=== PATIENT | female | born 1935 | race Two or more races ===

== ENCOUNTER 2018-12-23 18:32 | Inpatient (IN) | payer MEDICARE, OTHER ==
[~2018-12-23] VITALS: Ht 157.5 cm; Wt 75.0 kg
--- NOTE | 2018-12-23 19:00 | NUR ---
Admission Note with Justification for Admission to [facility] Patient admitted to [facility] for protective oversight for emergency stabilization of acute psychiatric crisis. Pt admitted from: [facility] Mode of arrival: EMS Accompanied By: EMS Precipitating behaviors that initiated intake and admission: Cut wrist 1 week ago, SI Description of failure of out patient attempts at stabilization in previous setting list behavior and medication trials: Sent to ER Behaviors and assessment findings upon admission: Calm, cooperative, coherent, VSS Plan: Admit for protective oversight for adjustment and stabilization of medications, behaviors and mood. Intense treatment regimen including groups, medication adjustments, therapy, consistent regimen for ADL's, self care, and sleep hygiene. Daily monitoring by Inpatient staff, Psychiatry, and Medical Physician.
[2018-12-23] MEDS ORDERED: DEXTROSE 50% 25 GM / 50ML DISP.SYRIN. IV PRN (20:30)
[2018-12-23 21:47] VITALS: BP 194/78
[2018-12-23 22:00] VITALS: BP_SYST 194
[2018-12-23] MEDS: METOPROLOL TART IMMED RELEASE 25 MG TABLET PO SCH (22:00)
[2018-12-23] MEDS ORDERED: MAG HYDROX/AL HYDROX/SIMETH 30 ML ORAL.SUSP PO PRN (23:00)
[2018-12-24] MEDS ORDERED: ONDANSETRON ODT 4 MG TAB.RAPDIS PO PRN (05:00)
--- NOTE | 2018-12-24 05:15 | NUR ---
Emesis: approx 200cc undigested food, PRN zofran given.
[2018-12-24 07:05] VITALS: BP 103/55
[2018-12-24] MEDS: ASPIRIN ENTERIC COATED 81 MG TABLET.DR. PO SCH (07:49)
[2018-12-24] MEDS: INSULIN LISPRO 300 UNITS/3 ML INSULN.PEN. SQ SCH ×3 (07:50→16:56)
[2018-12-24] MEDS: METOPROLOL TART IMMED RELEASE 25 MG TABLET PO SCH ×2 (07:50→20:43)
--- NOTE | 2018-12-24 09:27 | NUR ---
Location of Patient during Assessment:dining room Behaviors Mood and Affect this shift: calm compliant Medication Compliant: yes Assessment Compliant: yes Response After Interventions: up adl in garza with walker
[2018-12-24 12:08] LABS: THYROXINE 8.7 ug/dL (4.5-12.0)
--- NOTE | 2018-12-24 12:12 | NUR ---
During lunch FSBS pt become agitated, aggressive and resistive with staff. She was hitting and yelling at staff yelling "I don't need my blood sugar checked!" "No! Get away!" Staff X 4 convinced pt to comply with FSBS as staff educated her that she has to be safe and healthy while here and the DrAnderson will be here to see her this afternoon and he may discontinue them this after the doctor sees her. paged with new order for zyprexa zydis 2.5mg q 4 hours prn
--- NOTE | 2018-12-24 12:23 | EKG ---
[address] [address] Test Date: 2018-12-24 Test Time: 10:59:48 Pat Name: ISA ALVARADO Department: Room: [address] [place] [address] Gender: F Cyber Security Manager: : 1935 Requested By: BEATRICE CALLES Order Number: [id number] Reading MD: Giovanni Lawson MD Measurements Intervals [place] Rate: 76 P: 71 ID: [id number] QRS: 52 QRSD: 86 T: 98 QT: 388 QTc: 441 Interpretive Statements SINUS RHYTHM Electronically Signed On 01-18-2019 15:01:27 CDT by Giovanni Lawson MD
[2018-12-24 16:19] VITALS: BP 137/51
--- NOTE | 2018-12-24 16:59 | NUR ---
pt very paranoid and resistive to dr santiago assessing her. pt asked staff to leave room. pt resistive to redirection in afternoon. attempted to drop self to floor. zydis given per syringe. family here at 1600. pt has refused to eat anything but pt had grandson bring her a hamburger and fries.
[2018-12-24] MEDS: OLANZapine 7.5 MG TABLET PO SCH (20:44)
--- NOTE | 2018-12-24 23:30 | NUR ---
Nursing Note Pt argumentative and resistive to assessment. Takes po meds hidden in a boost. Tries to rally her peers into trying to leave. Also is hallucinating sees a dog and cat in the station.
--- NOTE | 2018-12-25 00:19 | CONS ---
DATE OF CONSULTATION: 12/24/2018 REASON FOR CONSULTATION: Consult for medical management. HISTORY OF PRESENT ILLNESS: The patient is an 83-year-old female patient was brought to the Emergency Room because of complaint of abdominal pain and suicidal ideation. She has been complaining of chronic upper abdominal pain for years that getting worse for the last 2 days. It is a constant, sharp pain with radiation to her back without nausea and vomiting, diarrhea or constipation, any symptoms of fever or chills. She stated that her pain is 10/10 in severity. Her pain is so bad that she wants to kill herself and tried to cut her wrist last week with plans to cut her wrist again. The patient has lost her son 2 years ago with suicide attempt and was very depressed since then and talking about suicide according to her neighbor's frequently. She denied any homicidal ideation or hallucination. She is very anxious during starting the IV line and she was extensively evaluated in the Emergency Room of [facility] as there was no evidence of any acute abnormality in her CT scan abdomen and pelvis without contrast. Basically, the patient was transferred [facility] for inpatient psychiatric stabilization. PAST MEDICAL HISTORY: Her pat medical history is significant for breast cancer, status post left mastectomy in 1991 in addition to axillary lymph node dissection. She has no history of chemotherapy or radiation. She was given 5 years of tamoxifen. Other medical problems include coronary artery disease, hypertension, hyperlipidemia, pleural effusion, anemia, generalized osteoarthritis as well as type 2 diabetes. PAST SURGICAL HISTORY: Past surgical history is significant for coronary artery bypass graft surgery x 3, left side mastectomy with lymph node dissection. She has total knee replacement bilaterally, tonsillectomy, hysterectomy and carpal tunnel repair. FAMILY HISTORY: Noncontributory. SOCIAL HISTORY: She lives in an independent living. She does not smoke, drink alcohol or use recreational drugs. She apparently seemed to be estranged from her family. ALLERGIES: She is ALLERGIC TO SULFA DRUGS. MEDICATIONS: When she was admitted to [facility] in 2015, she was on following medications. She was on nitroglycerin 0.4 mg sublingually every 5 minutes x 3, metoprolol tartrate 25 mg twice a day, aspirin 81 mg once a day, fluoxetine 20 mg daily, alprazolam 0.5 mg 3 times a day, temazepam 30 mg at bedtime, furosemide 20 mg once a day. She was actually on Levemir insulin 15 units at bedtime, biotin 5000 mcg p.o. daily and cholecalciferol for vitamin D3 2000 units daily. PHYSICAL EXAMINATION: GENERAL: When She was seen in the Emergency Room, she was obviously very restless, agitated, somewhat pale, but no jaundice or cyanosis. No lymphadenopathy, no thyromegaly. No jugular venous distension. No lower limb edema. VITAL SIGNS: Her heart rate was 63, blood pressure was 150/63, temperature was 97.4, respiratory rate 22 and oxygen saturation was 96% on room air. NEUROLOGIC: The patient was extremely paranoid and did not allowing me to even ask question and stating that I belong to them and despite multiple attempts to reassure her that I am a physician and I am not related to anybody of her family, she adamantly refused to allow me to question her and asked me to leave the room; however, from looking at her from a distance, she apparently seemed to be stable and all her cranial nerves from a distance seemed to be normal. EXTREMITIES: She moves her extremities without difficulty. She ambulates with a walker without difficulty. LABORATORY DATA: She has had extensive lab work done at the [facility] Emergency Room, which showed her white cell count 5700, hemoglobin 11.7, hematocrit 35, MCV 93 and platelet count of 191,000. Her serum sodium was 136, potassium 4.5, chloride 100, bicarbonate 23, anion gap of 13, BUN 36, creatinine 1.5, estimated GFR was 33 mL per minute. Her glucose was 197, calcium was 8.7. Her total bilirubin, AST, ALT, alkaline phosphatase were normal. Her white cell count was 6000. Her total protein was 6.5 and albumin was 3.2. Her lipase was 247 and her troponin was less than 0.032. Her prothrombin time was 13, INR of 1. Urinalysis was essentially unremarkable and her toxic screen was positive for opiates, negative for methadone, barbiturate, phencyclidine, amphetamine, methamphetamine, benzodiazepine, cocaine, cannabinoids and ethyl alcohol. IMPRESSION AND RECOMMENDATION: So, the patient was basically admitted because of suicidal ideation and depression and the patient, however, is extremely paranoid and very suspicious. When I came to talk to her, she thought that I belong to them and part of her family from which she is estranged. She refused to acknowledge that I am a physician; however, medically she seemed to have multiple medical problems. She has chronic kidney disease, type 2 diabetes mellitus. She has history of coronary artery disease, hypertension, osteoarthritis and type 2 diabetes. She has also normochromic normocytic anemia. Unfortunately, we do not have the actual list of her medication and she states that she has no family members that really know what she is taking. She does not know which pharmacy she gets her medication from and I think she needs basically first stabilize her psychologically before we look into her other medical problems. THUAN XIAO MD DR: ELODIA/nelda JOB#: [id number] / [id number]
--- NOTE | 2018-12-25 02:09 | PSYEV ---
DATE OF SERVICE: 12/24/2018 PSYCHIATRIC EVALUATION SUBJECTIVE: The patient was seen today for psychiatric evaluation. REASON FOR ADMISSION: This 83-year-old single female was sent here from [facility] Emergency Room. Apparently, the EMS brought her to the [facility] because she was having severe abdominal pain. CHIEF COMPLAINT: "I am here. I have been living here for 4 years." HISTORY OF PRESENT ILLNESS: The patient apparently was taken to [facility] from [place] where she was living in an apartment complex. Apparently, people around her noticed some changes. Apparently, she was screaming, crying, wandering and apparently they called the EMS to bring her here. The patient in the ER told her that that she tried to cut her wrists recently and was also making suicidal statements, very paranoid and suspicious and also confused. The patient told the staff that she is depressed because her son committed suicide 2 years ago. The patient unable to give any more information. Apparently, one of her grandsons came and visited her, but staff was not able to get much information out of him. The patient unable to interact with the staff. Tried to ask her questions about why she is here and what happened. The patient became very angry, paranoid, and she thought that this is [facility] and she did not believe that she is in the hospital. The patient walks with a walker. She was constantly pacing, agitated easily. The patient had some lab work done at [facility], it was positive for opioids. Apparently, the patient told them that she is on Xanax getting the prescription by mail order, but it was negative, did not show up in the urine. The patient denies of any prior treatment and the patient's information was unreliable at this time. PAST PSYCHIATRIC HISTORY: None available, but the patient has been on Xanax in the past. The patient is not able to give any information whether she had a past history of alcohol or substance abuse. PAST MEDICAL HISTORY: The patient apparently presented to the ER because of abdominal pain. The patient has a history of carpal tunnel surgery. The patient also has history of knee surgery, history of cardiac bypass surgery and also gastric bypass surgery, diabetes mellitus type 2, history of pleural effusion. CURRENT MEDICATIONS: Unavailable except mentioned above. She was taking Xanax, but the urine drug screen was negative. PSYCHOSOCIAL HISTORY: The patient told the staff that she has at least 10 children, but it is not clear. We will try to get more information from the family members. The patient guardian. The patient is not wanting to share the information at this time as she is very paranoid and suspicious. FAMILY HISTORY: None available. MENTAL STATUS EXAMINATION: The patient appeared to be of her stated age. The patient apparently had multiple scratches on her arms secondary to scratching or picking the skin. The patient is able to walk but slow. Denies of any falls. The patient denies of any physical problems at this time. Her speech is clear, monotone, and decreased rate and rhythm. Affect and mood showed her mood fluctuates significantly. She was pleasant one moment and the next moment she became very paranoid, not wanting to share any information and even she does not believe that this is hospital and she is talking to the medical staff. The patient is currently delusional, paranoid, suspicious. The patient is also having difficulty with concentration and thinking. The patient also having problems with short-term memory. She is confused at this time. Her memory is not testable at this time. Her judgment is impaired. Insight limited. ADMITTING DIAGNOSES: AXIS I: 1. Brief reactive psychosis. 2. Rule out major depression, single episode, with psychotic features. 3. Delusional disorder, paranoid. AXIS II: None. AXIS III: Status post knee surgery, status post gastric bypass, status post cardiac bypass surgery, diabetes mellitus type 2, history of pleural effusion. INITIAL TREATMENT PLAN: The patient currently refusing to provide information to the doctors and the staffs, not wanting any treatment and also she is confused. She thinks she is still living in an apartment. The patient currently on Zyprexa 2.5 mg q.4 hours p.r.n. and also she will be started on Zyprexa 7.5 mg at night tonight to see the response. implementation services analyst will contact the family and try to obtain more information and also try to guardian or a DPO for her. LENGTH OF STAY: 5-10 days. DEVORAH MERINO MD DR: ARIANA/nelda JOB#: [id number] / [id number]
[2018-12-25 05:53] VITALS: BP 132/52
[2018-12-25] MEDS: INSULIN LISPRO 300 UNITS/3 ML INSULN.PEN. SQ SCH ×3 (08:00→17:40)
[2018-12-25] MEDS: ASPIRIN ENTERIC COATED 81 MG TABLET.DR. PO SCH (08:11)
[2018-12-25] MEDS: METOPROLOL TART IMMED RELEASE 25 MG TABLET PO SCH ×2 (08:11→19:43)
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
[2018-12-25 16:31] VITALS: BP 119/56
--- NOTE | 2018-12-25 18:05 | NUR ---
Patient walking around most of the day with her roommate. Resistive with lunch insulin, accepting of insulin at dinner. Oriented to self, states that she lives here. Nurse was able to get urine sample, taken to lab.
[2018-12-25 18:32] LABS: BACTERIA,URINE MOD /HPF (0-FEW); BILIRUBIN,URINE NEG (NEG); CLARITY,URINE CLOUDY; COLOR,URINE YELLOW; GLUCOSE,URINE NEG (NEG); NITRITE,URINE POS (NEG); RBC,URINE 0 /HPF (0-2); SQUAMOUS EPITHELIAL CELL,UR MOD /LPF; UROBILINOGEN,URINE 0.2 mg/dL (0.2 mg/dL)
[2018-12-25] MEDS: OLANZapine 7.5 MG TABLET PO SCH (19:43)
--- NOTE | 2018-12-26 01:20 | NUR ---
Pt located in her bed this evening. Withdrawn to room. Pt pleasant when approached with medications. Compliant with whole medications. No behaviors noted.
[2018-12-26 05:35] VITALS: BP 126/66
[2018-12-26 07:42] LABS: BASO % 0 % (0-3); EOS # 0.2 x10^3/uL (0.0-0.7); EOS % 3 % (0-3); HEMATOCRIT 35.7 % (36.0-47.0); LYMPH # 2.2 x10^3/uL (1.0-4.8); LYMPH % 30 % (24-48); MEAN CORPUSCULAR HEMOGLOBIN 31 pg (25-35); MEAN CORPUSCULAR HGB CONC 34 g/dL (31-37); MEAN CORPUSCULAR VOLUME 93 fL (79-100); MONO # 0.7 x10^3/uL (0.0-1.1); MONO % 9 % (0-9); NEUT # 4.3 x10^3uL (1.8-7.7); NEUT % 59 % (31-73); PLATELET COUNT 195 x10^3/uL (140-400); RED BLOOD COUNT 3.84 x10^6/uL (3.50-5.40); RED CELL DISTRIBUTION WIDTH 13.4 % (11.5-14.5); WHITE BLOOD COUNT 7.4 x10^3/uL (4.0-11.0)
[2018-12-26] MEDS: ASPIRIN ENTERIC COATED 81 MG TABLET.DR. PO SCH (07:48)
[2018-12-26] MEDS: METOPROLOL TART IMMED RELEASE 25 MG TABLET PO SCH ×2 (07:48→19:41)
[2018-12-26] MEDS: INSULIN LISPRO 300 UNITS/3 ML INSULN.PEN. SQ SCH ×3 (07:52→17:35)
[2018-12-26 07:53] LABS: ALBUMIN 3.3 g/dL (3.4-5.0); ALBUMIN/GLOBULIN RATIO 0.8 (1.0-1.7); CALCIUM 9.4 mg/dL (8.5-10.1); CREATININE 1.3 mg/dL (0.6-1.0); GFR 39.2; POTASSIUM 4.5 mmol/L (3.5-5.1); TOTAL BILIRUBIN 0.5 mg/dL (0.2-1.0); TOTAL PROTEIN 7.2 g/dL (6.4-8.2)
--- NOTE | 2018-12-26 13:21 | PN ---
DATE: 12/25/2018 SUBJECTIVE: The patient was seen today, met with the staff, chart reviewed. The patient continues to avoid talking to the staff sometimes including the doctors. The patient gets very angry, paranoid, but she gets along with another female resident. Staff observed fluctuating mood swings, irritability, angry outbursts followed with being very pleasant and smiling. The patient is not expressing any suicidal thoughts. The patient is not exhibiting any overt psychotic symptoms, but the patient seems to be confused at times, having cognitive deficits. She is cofused to the point that she identified the unit as her home where she is staying for 4 weeks. OBSERVATION: Vital signs: Temperature 97.3, blood pressure 132/52, pulse 71, respirations 20, and O2 sat 100%. Slept about 5 hours last night. The patient's appetite is fair. The patient is able to walk with a walker. MEDICATIONS: The patient's current medications include Zyprexa 7.5 mg at night and Zyprexa 2.5 mg q.4 hours p.r.n. So far, she is not having any side effects. LENGTH OF STAY: 7 to 10 days. DEVORAH MERINO MD DR: ARIANA/nelda JOB#: [id number] / [id number] MATTI
--- NOTE | 2018-12-26 15:28 | NUR ---
Patient has been pleasant and cooperative today. Took all medication without complaint or concern. Currently in bed napping. Will continue to monitor.
[2018-12-26 16:31] VITALS: BP 123/63
[2018-12-26] MEDS: OLANZapine 7.5 MG TABLET PO SCH (19:41)
--- NOTE | 2018-12-26 21:40 | NUR ---
Nursing note: Assumed care of pt in her room. She was sitting with her roommate just visiting. Pt was pleasant and compliant. She had an incontinent episode earlier and stated she couldn't wait any longer for her roommate to get out of the bathroom. She has no c/o pain.
[2018-12-27 06:18] VITALS: BP 149/71
--- NOTE | 2018-12-27 06:33 | PN ---
DATE: 12/26/2018 SUBJECTIVE: The patient was seen today, met with the staff, chart reviewed. Staff reports some improvement. She is less irritable and caba. Still confused and has not presented with any major behavior problems. OBSERVATION: VITAL SIGNS: Temperature 97.4, blood pressure 126/66, pulse 59, respirations 18, O2 sat 96%. Slept about 8 hours last night. Her appetite has improved. The patient is still paranoid and suspicious. The patient is very defensive, reacts to any statements. The patient is struggling to hold on for reality. She also has significant problems with cognition. The patient has not expressed any overt psychotic symptoms today. MEDICATIONS: The patient's current medications include Zyprexa 7.5 mg at night and 2.5 mg q. 4 hours p.r.n. The patient denies of any physical complaints. ASSESSMENT: AXIS I: 1. Brief reactive psychosis; rule out major depression, single episode with psychotic features. 2. Delusional disorder, paranoid. PLAN: To continue with the treatment. LENGTH OF STAY: 7 days. DEVORAH MERINO MD DR: ARIANA/nelda JOB#: [id number] / [id number]
[2018-12-27] MEDS: INSULIN LISPRO 300 UNITS/3 ML INSULN.PEN. SQ SCH ×3 (08:00→17:00)
[2018-12-27] MEDS: ASPIRIN ENTERIC COATED 81 MG TABLET.DR. PO SCH (08:31)
[2018-12-27] MEDS: METOPROLOL TART IMMED RELEASE 25 MG TABLET PO SCH ×2 (08:32→19:21)
--- NOTE | 2018-12-27 09:00 | NUR ---
Nursing Note: Assumed care of pt approx 0700. Pt in dining room at time of morning medications pass. Compliant w/ meds taken whole, denied pain, interactive w/ peers and staff.
--- NOTE | 2018-12-27 11:56 | NUR ---
Attempted to meet and complete Activity Therapy Assessment; however, Pt. was visiting with family. Addendum: 12/27/18 at 1157 by GILBERTO HERNANDEZ ACT This attempt was made on 12/26/2018 at 0064
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
--- NOTE | 2018-12-27 16:20 | NUR ---
WEEKLY ACTIVITY THERAPY NOTE Date of Admission: 12/23/2018 Date of AT Assessment: TBD Goal aimed: TBD Initial goal: TBD Weekly progress towards goal: NA Group participation level: minimal Weekly highlights: painting cans on Tues.- telling jokes, sharp wit Behaviors observed: social at times, other times withdrawn and sleepy Plan: meet and assess. Beneficial adaptations: reminders, invites
[2018-12-27 16:32] VITALS: BP 123/52
--- NOTE | 2018-12-27 16:51 | NUR ---
Nursing Note: Pt c/o restless legs last night which caused her to need to get up multiple times during the night according to night nurse. Dr. Cole ordered consult with Dr. Buitrago. Order placed.
[2018-12-27] MEDS: OLANZapine 7.5 MG TABLET PO SCH (19:22)
--- NOTE | 2018-12-27 21:48 | NUR ---
Nursing note: Assumed care of pt in her room where she was visiting with her roommate. Pt is happy, joking with me, compliant, no c/o pain. No c/o restless leg so far. Pt still tends to be withdrawn to room.
--- NOTE | 2018-12-28 03:59 | PN ---
DATE: 12/27/2018 SUBJECTIVE: The patient was seen today, met with the staff, chart reviewed. The patient apparently has been compliant with the treatment and taking her medications. Still complaining of restless leg syndrome, unable to sit still. The patient continues to show fluctuating mood, irritability, still paranoid, still having problems, some cognitive deficits. OBSERVATION: VITAL SIGNS: Temperature 97.5, blood pressure 149/71, pulse 73, respirations 18, O2 sat 93% , slept about less than 3 hours last night. Her appetite is fair. MEDICATIONS: The patient's current medications include Zyprexa 7.5 mg at night and 2.5 mg q. 4 hours p.r.n. The patient is not presenting with any major complaints. She is able to walk with a walker. ASSESSMENT: 1. Brief reactive psychosis, rule out major depression, single episode, with psychotic features. 2. Delusional disorder, paranoid. 3. Cognitive disorder, mild. PLAN: To continue with the treatment. LENGTH OF STAY: 5 days. DEVORAH MERINO MD DR: ARIANA/nelda JOB#: [id number] / [id number]
[2018-12-28 06:03] VITALS: BP 100/69
[2018-12-28] MEDS: ASPIRIN ENTERIC COATED 81 MG TABLET.DR. PO SCH (07:40)
[2018-12-28] MEDS: INSULIN LISPRO 300 UNITS/3 ML INSULN.PEN. SQ SCH ×3 (07:43→17:00)
[2018-12-28] MEDS: ACETAMINOPHEN 325 MG TABLET PO PRN (09:21)
--- NOTE | 2018-12-28 09:26 | NUR ---
Patient reports that she has pain in her legs, mostly in her thighs. She has a history of Restless leg Syndrome. Dr. Buitrago is here to consult. PRN tylenol given for leg pain per order. Will continue to monitor.
[2018-12-28] MEDS: METOPROLOL TART IMMED RELEASE 25 MG TABLET PO SCH ×2 (09:28→20:29)
--- NOTE | 2018-12-28 13:07 | NUR ---
Patient is very social with roommate. She is pleasant, calm and she is oriented to self at this time. She ambulates with walker, and self performs ADLs. She denies wanting to hurt herself and also denies having any gastric pain at this time. She attends group but is usually more interested in talking to peer.
[2018-12-28 15:59] VITALS: BP 146/69
[2018-12-28] MEDS: OLANZapine 7.5 MG TABLET PO SCH (20:29)
[2018-12-28] MEDS: rOPINIRole 0.5 MG TABLET. PO SCH (20:29)
--- NOTE | 2018-12-28 22:09 | NUR ---
On assessment patient is sitting in her room visiting with her roommate. Pt was pleasant and interactive with staff. Patient tearful when another patient started yelling and attempting to hit staff members. Patient states she really hates the way we are treated by the other patients, when we are just so nice and care for them. Reassured patient that all the staff members are okay. Patient compliant with medications and assessment. Patient denies pain at this time.
--- NOTE | 2018-12-29 03:30 | PN ---
DATE: 12/28/2018 SUBJECTIVE: The patient was seen today, met with the staff, chart reviewed. The patient was seen by Dr. Buitrago today and the patient was started on Requip. OBSERVATION: Vital signs: Temperature 97.9, blood pressure 100/69, pulse 56, respirations 18, O2 sat 95%. Slept only 2 hours last night. The patient continues to be paranoid, hostile, and fluctuating mood and also significant cognitive deficits. MEDICATIONS: The patient's current medications include Zyprexa 7.5 mg at night and 2.5 mg q.4 hours p.r.n. The patient was also started on trazodone 25 mg at night for sleep. The patient is not having any other physical complaints. ASSESSMENT: 1. Brief reactive psychosis, rule out major depression, single episode with psychotic symptoms. 2. Delusional disorder, paranoid. 3. Cognitive disorder, mild. PLAN: To continue with the treatment. LENGTH OF STAY: 7 days. DEVORAH MERINO MD DR: ARIANA/nelda JOB#: [id number] / [id number]
[2018-12-29 06:13] VITALS: BP 138/71
[2018-12-29] MEDS: INSULIN LISPRO 300 UNITS/3 ML INSULN.PEN. SQ SCH ×3 (08:18→17:52)
[2018-12-29] MEDS: METOPROLOL TART IMMED RELEASE 25 MG TABLET PO SCH ×2 (08:22→19:44)
[2018-12-29] MEDS: ASPIRIN ENTERIC COATED 81 MG TABLET.DR. PO SCH (08:22)
--- NOTE | 2018-12-29 10:50 | NUR ---
Patient has been in and out of day room and room all morning. She is usually accompanied by her roommate. She has been compliant with medications and cooperative with cares. Currently she is reporting loose stools but refuses to let the nurse observe stool. Patient requesting Imodium for loose stools and abdominal pain. Patient has history of gastric bypass according to medical records.
[2018-12-29 15:50] VITALS: BP 112/52
[2018-12-29] MEDS ORDERED: LOPERAMIDE 2 MG CAPSULE PO PRN (17:30)
[2018-12-29] MEDS: OLANZapine 7.5 MG TABLET PO SCH (19:43)
[2018-12-29] MEDS: rOPINIRole 0.5 MG TABLET. PO SCH (19:43)
[2018-12-29] MEDS: CEFDINIR 300 MG CAPSULE PO SCH (19:43)
--- NOTE | 2018-12-29 19:45 | NUR ---
Patient is walking the halls "stretching" her legs. Patient report some mild lower back pain, encouraged her to take a break and come sit in the dayroom to talk with this nurse. Patient pleasant/interactive with staff and is very grateful for the assistance she receives. Patient compliant with assessment and medication whole. Patient becomes tearful when she talks about leaving this hospital. Encouraged patient that she would just have another opportunity to make some new friend like she has done with her roommate here.
[2018-12-30] MEDS: traZODone 50 MG TABLET. PO PRN (00:04)
--- NOTE | 2018-12-30 00:14 | PN ---
DATE: 12/29/2018 SUBJECTIVE: The patient was seen today, met with the staff, chart reviewed. The patient's behavior remains the same. The patient was still anxious, restless, paranoid, suspicious, also exhibiting some emotional lability. The patient also showing significant underlying thought disorder. OBSERVATION: VITAL SIGNS: Temperature 97.9, blood pressure 100/69, pulse 56, respirations 18, O2 sat 95%. Slept about only 2 hours last night. The patient's appetite is good. MEDICATIONS: The patient's current medications include Zyprexa 7.5 mg at night and 2.5 mg q. 4 hours p.r.n. The patient is on trazodone 25 mg at night for sleep at night. The patient is not having any side effects. LABORATORY DATA: The patient's lab reviewed. ASSESSMENT: 1. Brief reactive psychosis. 2. Rule out major depression, single episode with psychotic symptoms. 3. Delusional disorder, paranoid. 4. Cognitive disorder, mild. PLAN: To continue with the treatment. LENGTH OF STAY: 5-7 days. DEVORAH MERINO MD DR: ARIANA/nelda JOB#: [id number] / [id number]
[2018-12-30 05:51] VITALS: BP 127/65
[2018-12-30] MEDS: INSULIN LISPRO 300 UNITS/3 ML INSULN.PEN. SQ SCH ×3 (08:00→17:43)
[2018-12-30] MEDS: METOPROLOL TART IMMED RELEASE 25 MG TABLET PO SCH ×2 (09:25→19:58)
[2018-12-30] MEDS: ASPIRIN ENTERIC COATED 81 MG TABLET.DR. PO SCH (09:25)
[2018-12-30] MEDS: CEFDINIR 300 MG CAPSULE PO SCH ×2 (09:25→19:57)
--- NOTE | 2018-12-30 11:52 | NUR ---
Nursing Note: Assumed care of pt approx 0700. Pt in day room at time of medication pass. Pt calm, compliant w/ meds taken whole, cooperative w/ assessment and w/ care, interactive w/ peers and staff especially her roommate. Smiling, spending time in day room, walking the unit w/ roommate.
[2018-12-30 15:44] VITALS: BP 131/75
[2018-12-30] MEDS: METHYL SALICYLATE/MENTHOL TOPICAL OINTMENT 29GM TUBE. TP PRN ×2 (16:23→21:36)
--- NOTE | 2018-12-30 16:23 | NUR ---
Nursing Note: Pt C/O pain in left breast area that radiated around to her upper back. Pt hx of mastectomy of left breast which results in left swelling of left arm and according to pt pain similar to what she is experiencing now. Pt heart sounds are regular and vitals are 131/75 p 71 resp 16, O2 sats 96%, temp of 97.5 temporal. Pt does not feel any tightness in her chest rather describes pain as more of muscle ache. After talking to pt, realized that she had lifted weights and participated in quite extensive exercise activity group with activity therapist today. Analgesic balm applied. Will continue to monitor.
--- NOTE | 2018-12-30 18:18 | NUR ---
Nursing Note: Pt reports that analgesic balm relieved her pain. Pt very grateful and wanted to know who would apply balm tomorrow. Reassured pt that her nurse would apply for her tomorrow if she has pain.
[2018-12-30] MEDS: rOPINIRole 0.5 MG TABLET. PO SCH (19:57)
[2018-12-30] MEDS: OLANZapine 7.5 MG TABLET PO SCH (19:57)
--- NOTE | 2018-12-31 00:06 | NUR ---
Pt located in the dayroom, sitting calmly and visiting with her roommate. Pt pleasant and interactive. Compliant with HS medications. Pt jokingly asked if the pills would make her . PRN analgesic balm applied to left shoulder and upper back.
--- NOTE | 2018-12-31 03:00 | NUR ---
Pt awake in bed, complaining of leg pain. PRN Tylenol administered.
[2018-12-31] MEDS: ACETAMINOPHEN 325 MG TABLET PO PRN (03:01)
[2018-12-31 06:24] VITALS: BP 101/61
[2018-12-31 07:30] LABS: BASO % 0 % (0-3); EOS # 0.2 x10^3/uL (0.0-0.7); EOS % 2 % (0-3); HEMATOCRIT 33.3 % (36.0-47.0); HEMOGLOBIN 11.4 g/dL (12.0-15.5); LYMPH # 2.5 x10^3/uL (1.0-4.8); LYMPH % 40 % (24-48); MEAN CORPUSCULAR HEMOGLOBIN 31 pg (25-35); MEAN CORPUSCULAR HGB CONC 34 g/dL (31-37); MEAN CORPUSCULAR VOLUME 92 fL (79-100); MONO # 0.6 x10^3/uL (0.0-1.1); MONO % 9 % (0-9); NEUT % 48 % (31-73); PLATELET COUNT 242 x10^3/uL (140-400); RED BLOOD COUNT 3.62 x10^6/uL (3.50-5.40); RED CELL DISTRIBUTION WIDTH 13.5 % (11.5-14.5); WHITE BLOOD COUNT 6.2 x10^3/uL (4.0-11.0)
[2018-12-31 07:59] LABS: ALBUMIN 3.4 g/dL (3.4-5.0); ALBUMIN/GLOBULIN RATIO 0.9 (1.0-1.7); CALCIUM 9.3 mg/dL (8.5-10.1); CREATININE 1.4 mg/dL (0.6-1.0); POTASSIUM 3.9 mmol/L (3.5-5.1); TOTAL BILIRUBIN 0.4 mg/dL (0.2-1.0); TOTAL PROTEIN 7.3 g/dL (6.4-8.2)
[2018-12-31] MEDS: INSULIN LISPRO 300 UNITS/3 ML INSULN.PEN. SQ SCH ×3 (08:00→17:00)
[2018-12-31] MEDS: METOPROLOL TART IMMED RELEASE 25 MG TABLET PO SCH ×2 (09:19→20:15)
[2018-12-31] MEDS: ASPIRIN ENTERIC COATED 81 MG TABLET.DR. PO SCH (09:19)
[2018-12-31] MEDS: CEFDINIR 300 MG CAPSULE PO SCH ×2 (09:19→20:14)
[2018-12-31] MEDS: LACTOBACILLUS RHAMNOSUS GG 1 CAPSULE. PO SCH ×2 (09:19→20:15)
--- NOTE | 2018-12-31 11:08 | NUR ---
Patient has had a good morning. Was in the dayroom upon assessment visiting with other patients. Patient appears to be happy. Took medications as prescribed, allowed for morning assessment. No signs of agitation noted at this time. Patient does still have some swelling in her left forearm. Will continue to monitor.
[2018-12-31 16:13] VITALS: BP 129/50
[2018-12-31] MEDS: OLANZapine 7.5 MG TABLET PO SCH (20:14)
[2018-12-31] MEDS: rOPINIRole 0.5 MG TABLET. PO SCH (20:15)
--- NOTE | 2019-01-01 00:15 | NUR ---
Pt has been wandering unit this evening. Pt has been at the nurses station window numerous times tonight, each time with a new request. Pt has been restless and appears anxious. Pt making statements about needing to pack up her belongings since she is leaving tomorrow. Compliant with HS medications.
[2019-01-01] MEDS: traZODone 50 MG TABLET. PO PRN (01:21)
--- NOTE | 2019-01-01 02:23 | NUR ---
Pt has been awake on and off throughout the night. Repeat Trazodone administered at 0130. Medication was not effective. Pt continues to pace and wander the unit, entering other sleeping pt's rooms. Pt irritable with redirection. PRN Zyprexa administered at 0220. Will continue to monitor.
[2019-01-01 06:10] VITALS: BP 108/54
[2019-01-01] MEDS: INSULIN LISPRO 300 UNITS/3 ML INSULN.PEN. SQ SCH ×3 (08:00→17:39)
[2019-01-01] MEDS: ASPIRIN ENTERIC COATED 81 MG TABLET.DR. PO SCH (08:19)
[2019-01-01] MEDS: LACTOBACILLUS RHAMNOSUS GG 1 CAPSULE. PO SCH ×2 (08:21→20:09)
[2019-01-01] MEDS: METOPROLOL TART IMMED RELEASE 25 MG TABLET PO SCH ×2 (08:22→20:10)
[2019-01-01] MEDS: CEFDINIR 300 MG CAPSULE PO SCH ×2 (08:23→20:09)
--- NOTE | 2019-01-01 09:55 | NUR ---
Patient has had a good morning. Took medications as prescribed, allowed for morning assessment. She did a great job in group this morning. No signs of agitation noted, will continue to monitor.
--- NOTE | 2019-01-01 10:45 | NUR ---
Patient mentioned to staff on the way to the shower that she saw a dog in the hallway. Also that she thought she saw her children's old OB doctor. The nurse let know this during rounding. Will continue to monitor.
[2019-01-01 16:41] VITALS: BP 151/59
[2019-01-01] MEDS: rOPINIRole 0.5 MG TABLET. PO SCH (20:09)
[2019-01-01] MEDS: OLANZapine 7.5 MG TABLET PO SCH (20:10)
[2019-01-01] MEDS ORDERED: MIRTAZAPINE 7.5 MG TABLET. PO SCH (21:00)
--- NOTE | 2019-01-01 23:28 | PDOC ---
Exam Note: Virgilio Note: Please also refer to the separate dictated note~for this date of service dictated separately. Discussed the patient with Nursing staff reviewed the chart.~Reviewed interim history and current functioning. Reviewed vital signs,~Labs/ Radiology~and current medications noted below. Continue current treatment with the changes noted in the dictated addendum note Assessment: Vital Signs: Vital Signs Date Time Temp Pulse Resp B/P (MAP) Pulse Ox O2 Delivery O2 Flow Rate FiO2 01/01/19 20:10 68 151/59 01/01/19 16:41 97.0 16 94 12/30/18 15:44 Room Air I&O Intake and Output 01/01/19 06:59 Intake Total 1080 ml Balance 1080 ml Intake Oral 1080 ml Labs: Laboratory Tests Test 01/01/19 08:02 01/01/19 11:45 01/01/19 17:04 01/01/19 20:04 Glucose (Fingerstick) 131 mg/dL (70-99) H 140 mg/dL (70-99) H 167 mg/dL (70-99) H 124 mg/dL (70-99) H Current Medications: Meds: Current Medications Metoprolol Tartrate (Lopressor) 25 mg BID PO Last administered on 01/01/19at 20:10; Start 12/23/18 at 21:00 Insulin Human Lispro (HumaLOG) 0-5 UNITS TIDWMEALS SQ Last administered on 01/01/19at 17:39; Start 12/24/18 at 08:00 Dextrose (Dextrose 50%-Water Syringe) 12.5 gm PRN Q15MIN PRN IV SEE COMMENTS; Start 12/23/18 at 20:30 Aspirin (Aspirin Enteric Coated) 81 mg DAILYWBKFT PO Last administered on 01/01/19at 08:19; Start 12/24/18 at 08:00 Acetaminophen (Tylenol) 650 mg PRN Q6HRS PRN PO PAIN / TEMP Last administered on 12/31/18at 03:01; Start 12/23/18 at 23:00 Multi-Ingredient Ointment (Analgesic [place]) 1 kirby PRN QID PRN TP MUSCLE PAIN Last administered on 12/30/18at 21:36; Start 12/23/18 at 23:00 Al Hydroxide/Mg Hydroxide (Mylanta Plus Xs) 15 ml PRN AFTMEALHC PRN PO DYSPEPSIA Last administered on 12/24/18 05:36; Start 12/23/18 at 23:00 Magnesium Hydroxide (Milk Of Magnesia) 2,400 mg PRN QHS PRN PO CONSTIPATION; Start 12/23/18 at 23:00 Ondansetron HCl (Zofran Odt) 4 mg PRN Q8HRS PRN PO NAUSEA/VOMITING Last administered on 12/24/18 05:15; Start 12/24/18 at 05:00 Olanzapine (ZyPREXA ZYDIS) 2.5 mg PRN Q4HRS PRN PO ANXIETY / AGITATION Last administered on 01/01/19 02:21; Start 12/24/18 at 12:15 Olanzapine (ZyPREXA) 7.5 mg HS PO Last administered on 01/01/19at 20:10; Start 12/24/18 at 21:00 Ropinirole HCl (Requip) 0.5 mg QHS PO Last administered on 01/01/19 20:09; Start 12/28/18 at 21:00 Trazodone HCl (Desyrel) 25 mg PRN QHS PRN PO MAY REPEAT X 1 Last administered on 01/01/19at 01:21; Start 12/28/18 at 16:45 Cefdinir (Omnicef) 300 mg BID PO Last administered on 01/01/19at 20:09; Start 12/29/18 at 21:00 Loperamide HCl (Imodium) 2 mg PRN Q4HRS PRN PO DIARRHEA; Start 12/29/18 at 17:30 Lactobacillus Rhamnosus (Culturelle) 1 cap BID PO Last administered on 01/01/19at 20:09; Start 12/31/18 at 09:00 Sertraline HCl (Zoloft) 50 mg DAILY PO ; Start 01/02/19 at 09:00 Mirtazapine (Remeron) 7.5 mg QHS PO Last administered on 01/01/19at 20:10; Start 01/01/19 at 21:00 I have reviewed the current psychotropics carefully including drug interactions. Risk benefit ratio favors no change other than as noted in my dictated progress note. Diagnosis: Problems: (1) Brief reactive psychosis (2) Delusional disorders (3) Paranoid (4) Cognitive disorder BEATRICE CALLES MD January 01, 2019 23:28
[2019-01-02] MEDS: traZODone 50 MG TABLET. PO PRN ×2 (00:05→02:11)
--- NOTE | 2019-01-02 00:32 | NUR ---
Pt has been wandering the unit this evening. Pt continues to be attention seeking and at the nurses station window numerous times for different reasons. Compliant with HS medications. Pt still awake at 0030. Trazodone administered. Pt irritable and resistive to the medication at first, but eventually compliant. Pt stated that it is hard to walk on this floor because it is so uneven. Pt appears to be seeing things on the floor as she is walking. Pt also stated that she saw ants on the floor.
--- NOTE | 2019-01-02 02:19 | NUR ---
Pt continues to not sleep. Repeat dose of Trazodone administered. Pt hallucinating, stating that there was a little girl in her room and now she is gone. Addendum: 01/02/19 at 0321 by ERICA HITCHCOCK RN Pt also witnessed talking to people that are not there in her room.
--- NOTE | 2019-01-02 06:05 | NUR ---
Pt has been wandering the unit all morning. Pt asking staff how to get out of here, stating that her is waiting for her out in the parking lot. Pt has been seen talking to people that are not there. Pt has taken her linens off of her bed, her dirty clothes, etc and placed them on her walker. Pt refusing to let anyone take the items off of her walker and put them away because she states she is leaving now. Addendum: 01/02/19 at 0625 by ERICA HITCHCOCK RN MATTHEW [place] administered.
[2019-01-02 06:30] VITALS: BP 113/56
[2019-01-02] MEDS: INSULIN LISPRO 300 UNITS/3 ML INSULN.PEN. SQ SCH ×3 (08:00→17:00)
[2019-01-02] MEDS: ASPIRIN ENTERIC COATED 81 MG TABLET.DR. PO SCH (09:09)
[2019-01-02] MEDS: LACTOBACILLUS RHAMNOSUS GG 1 CAPSULE. PO SCH ×2 (09:09→20:50)
[2019-01-02] MEDS: ACETAMINOPHEN 325 MG TABLET PO PRN (09:10)
[2019-01-02] MEDS: CEFDINIR 300 MG CAPSULE PO SCH ×2 (09:10→20:56)
[2019-01-02] MEDS: SERTRALINE 50 MG TABLET. PO SCH (09:10)
[2019-01-02] MEDS: METOPROLOL TART IMMED RELEASE 25 MG TABLET PO SCH ×2 (09:16→20:55)
--- NOTE | 2019-01-02 11:54 | NUR ---
Patient has had a good morning, mentioned that her right hip was bothering her at lunch. PRN tylenol 650mg given @0910. Patient seems to be doing better, denies pain, has been participating in group. Did mention to staff earlier that she thought she saw two men in her bed. Took medications, allowed for morning assessment. Will continue to monitor.
--- NOTE | 2019-01-02 12:17 | NUR ---
Patient was eating lunch when she mentioned to staff that she "saw a dog on the roof" staff redirected her that there wasn't a dog and everything was ok. Will continue to monitor.
--- NOTE | 2019-01-02 15:10 | NUR ---
SW returned call to pt dtr to discuss an update on pt and mentioned having tx team on . SW will plan to contact pt dtr [facility] as she is 2 hours behind. Pt dtr reports that pt is still having delusions of seeing things; however, pt reports to her dtr that they are "pretty things. Pretty dogs and pretty little girls". SW has also noticed pt being delusional and somewhat paranoid as pt reported that she saw her ex- here and packed up a brown paper bag of clothes because she "needed to get away from him". It is suspected that another pt on the unit reminds her of her ex-. Pt dtr reports that pt has not had behaviors like this and is concerned if they will be temporary versus pt new norm.
[2019-01-02 16:18] VITALS: BP 99/61
--- NOTE | 2019-01-02 19:59 | PDOC ---
Exam Note: Virgilio Note: Admission Date: December 23, 2018 at 18:32 * A recertification for continued Inpatient Psychiatric Admission must be done on Day 12, Day 18 and Day 30. Please also refer to the separate dictated note~for this date of service dictated separately.~Patient seen individually. Discussed the patient with Nursing staff reviewed the chart.~Reviewed interim history and current functioning. Reviewed vital signs,~Labs/ Radiology~and current medications noted below. Continue current treatment with the changes noted in the dictated addendum note Assessment: Vital Signs: Vital Signs Date Time Temp Pulse Resp B/P (MAP) Pulse Ox O2 Delivery O2 Flow Rate FiO2 01/02/19 16:18 97.0 51 20 99/61 (74) 98 12/30/18 15:44 Room Air I&O Intake and Output0 01/02/19 07:00 Intake Total 720 ml Balance 720 ml Intake Oral 720 ml Labs: Laboratory Tests Test 01/01/19 20:04 01/02/19 07:21 01/02/19 11:29 01/02/19 16:37 Glucose (Fingerstick) 124 mg/dL (70-99) H 99 mg/dL (70-99) 253 mg/dL (70-99) H 125 mg/dL (70-99) H Test 01/02/19 19:37 Glucose (Fingerstick) 144 mg/dL (70-99) H Current Medications: Meds: Current Medications Metoprolol Tartrate (Lopressor) 25 mg BID PO Last administered on 01/02/19at 09:16; Start 12/23/18 at 21:00 Insulin Human Lispro (HumaLOG) 0-5 UNITS TIDWMEALS SQ Last administered on 01/02/19at 12:29; Start 12/24/18 at 08:00 Dextrose (Dextrose 50%-Water Syringe) 12.5 gm PRN Q15MIN PRN IV SEE COMMENTS; Start 12/23/18 at 20:30 Aspirin (Aspirin Enteric Coated) 81 mg DAILYWBKFT PO Last administered on 01/02/19at 09:09; Start 12/24/18 at 08:00 Acetaminophen (Tylenol) 650 mg PRN Q6HRS PRN PO PAIN / TEMP Last administered on 01/02/19at 09:10; Start 12/23/18 at 23:00 Multi-Ingredient Ointment (Analgesic [place]) 1 kirby PRN QID PRN TP MUSCLE PAIN Last administered on 12/30/18 21:36; Start 12/23/18 at 23:00 Al Hydroxide/Mg Hydroxide (Mylanta Plus Xs) 15 ml PRN AFTMEALHC PRN PO DYSPE PSIA Last administered on 12/24/18 05:36; Start 12/23/18 at 23:00 Magnesium Hydroxide (Milk Of Magnesia) 2,400 mg PRN QHS PRN PO CONSTIPATION; Start 12/23/18 at 23:00 Ondansetron HCl (Zofran Odt) 4 mg PRN Q8HRS PRN PO NAUSEA/VOMITING Last administered on 12/24/18 05:15; Start 12/24/18 at 05:00 Olanzapine (ZyPREXA ZYDIS) 2.5 mg PRN Q4HRS PRN PO ANXIETY / AGITATION Last administered on 01/02/19 06:02; Start 12/24/18 at 12:15 Olanzapine (ZyPREXA) 7.5 mg HS PO Last administered on 01/01/19 20:10; Start 12/24/18 at 21:00 Ropinirole HCl (Requip) 0.5 mg QHS PO Last administered on 01/01/19 20:09; Start 12/28/18 at 21:00 Trazodone HCl (Desyrel) 25 mg PRN QHS PRN PO MAY REPEAT X 1 Last administered on 01/02/19 02:11; Start 12/28/18 at 16:45 Cefdinir (Omnicef) 300 mg BID PO Last administered on 01/02/19 09:10; Start 12/29/18 at 21:00 Loperamide HCl (Imodium) 2 mg PRN Q4HRS PRN PO DIARRHEA; Start 12/29/18 at 17:30 Lactobacillus Rhamnosus (Culturelle) 1 cap BID PO Last administered on 01/02/19 09:09; Start 12/31/18 at 09:00 Sertraline HCl (Zoloft) 50 mg DAILY PO Last administered on 01/02/19 09:10; Start 01/02/19 at 09:00 Mirtazapine (Remeron) 7.5 mg QHS PO Last administered on 5/20/19at 20:10; Start 01/01/19 at 21:00; Stop 01/02/19 at 18:27; Status DC Mirtazapine (Remeron) 15 mg QHS PO ; Start 01/02/19 at 21:00 I have reviewed the current psychotropics carefully including drug interactions. Risk benefit ratio favors no change other than as noted in my dictated progress note. Diagnosis: Problems: (1) Brief reactive psychosis (2) Delusional disorders (3) Paranoid (4) Cognitive disorder (5) Anxiety disorder (6) Impulse control disorder (7) Major depressive disorder, recurrent episode (8) Psychosis, atypical (9) Psychotic depression BEATRICE CALLES MD January 02, 2019 19:58
[2019-01-02] MEDS: rOPINIRole 0.5 MG TABLET. PO SCH (20:50)
[2019-01-02] MEDS: OLANZapine 7.5 MG TABLET PO SCH (20:50)
[2019-01-02] MEDS: MIRTAZAPINE 15 MG TABLET PO SCH (20:58)
--- NOTE | 2019-01-02 21:07 | PN ---
DATE: 01/01/2019 PSYCHIATRIC PROGRESS NOTE This late entry 01/01/2019 covers elements not covered in my initial note. SUBJECTIVE: I met with the patient at length individually and reviewed information from Dr. Malik who had covered for me over the past several days during my vacation. Briefly, the patient is an 83-year-old female referred to us from [facility] on account of suicidal ideation with a plan to cut her wrists. She cut her wrist 1 week previously, did not seek medical attention. Reportedly, son committed suicide 2 years ago and she has been increasingly confused, depressed since then. She was found in the garza in the building by neighbors yelling out about severe abdominal pain; went to the ER, workup was negative, then referred for inpatient psychiatric stabilization. REVIEW OF SYSTEMS: Ambulation impaired with walker. No CV, , pulmonary, eye system symptoms on review. She denied any past alcohol usage. States she had 10 children, lost 2 children intrauterine and then son committed suicide 2 years ago. She states she was living in independent apartments in the past, knew she had been here about 10 days. No CV, , pulmonary, eye system symptoms on review. MENTAL STATUS EXAM: Oriented to herself and situation. Speech is coherent, abstraction fair, computation impaired, language function intact, attention span short. Mood and affect remain depressed. IMPRESSION: Major depressive disorder, rule out psychotic features; anxiety disorder, unspecified; impulse control disorder, unspecified. PLAN: The patient slept 4 hours previous night despite trazodone being repeated. She has had intermittent hallucinations. We will start Remeron 7.5 mg at bedtime. The patient remains depressed. We will start Zoloft 50 mg a day with food. Continue Zyprexa p.r.n. and she is on Requip 0.5 mg at bedtime. We will make further adjustments as clinically indicated. BEATRICE CALLES MD DR: PREMA/nelda JOB#: [id number] / [id number]
[2019-01-02] MEDS: METHYL SALICYLATE/MENTHOL TOPICAL OINTMENT 29GM TUBE. TP PRN (22:14)
[2019-01-03] MEDS: traZODone 50 MG TABLET. PO PRN (02:32)
--- NOTE | 2019-01-03 02:58 | NUR ---
Nursing Note The patient was located primarily in her room for her medications and assessment. The patient was compliant with her medication and took it whole. The patient was appropriate during interactions with this nurse. The patient was very restless during the night and was given PRN Trazodone per PRN order. The patient is currently awake in her room.
--- NOTE | 2019-01-03 05:43 | NUR ---
Nursing Note The patient is currently located in her room using the sink. The Trazodone was ineffective and the patient has became increasingly delusional and paranoid this morning. The patient has made several statements stating that she is being held here and that we are lying to her. This nurse and other staff members have attempted to reassure her that this is not the case to no effect.
[2019-01-03 06:22] VITALS: BP 148/78
[2019-01-03] MEDS: INSULIN LISPRO 300 UNITS/3 ML INSULN.PEN. SQ SCH ×3 (08:00→17:00)
[2019-01-03] MEDS: LACTOBACILLUS RHAMNOSUS GG 1 CAPSULE. PO SCH ×2 (08:30→19:23)
[2019-01-03] MEDS: METOPROLOL TART IMMED RELEASE 25 MG TABLET PO SCH ×2 (08:30→19:22)
[2019-01-03] MEDS: ASPIRIN ENTERIC COATED 81 MG TABLET.DR. PO SCH (08:30)
[2019-01-03] MEDS: CEFDINIR 300 MG CAPSULE PO SCH ×2 (08:30→19:23)
[2019-01-03] MEDS: SERTRALINE 50 MG TABLET. PO SCH (08:30)
--- NOTE | 2019-01-03 13:40 | NUR ---
Nursing Note pt was in dining room this am for assessment and medication administration. pt was A&O to self and year. pt was compliant with her medications. pt was withdrawn to her room most of the day doing random things, pt was putting on her makeup several different times, pt was wandering around in her room. upon assessment of situation, pt states there is a puppy under her bed, states that her family came and knocked on the door, she invited them in and they turned away and left. states her daughter and grandsons are trying to take her to court and she doesn't understand why or why she has to be in here. pt did not sleep last night per night stocker and hasn't slept thus far in the shift today. when up in room, pt forgets to use her walker and needs constant encouragement to use her walker for her safety. Pt having delusions, hallucinations, and paranoid about what is going on in her room and it is hard for her to relax and get any rest. upon assessment, pt has swelling in left arm significant compared to right arm. pt states it has been like that since her mastectomy and that it is normal for her, nursing note says to continue to monitor and note any changes. will continue to monitor. timbo monae.
[2019-01-03 16:09] VITALS: BP 131/71
--- NOTE | 2019-01-03 16:10 | NUR ---
SW was outside the office who seemed perturbed that staff was being rude to the patients. "we may be older, but we are not stupid". Pt reports that she would like to see staff be more attentive at times and just doesn't understand why they talk to other's the way they do. Pt also inquired about whether or not SW had a number to her so he could come and pick her up; as well as wondered if she could get a jacket or something to cover up because she is cold. Pt then proceeded to "scold" SW as another pt approached and attempted to yell at . SW held up a finger and told pt one minute while SW attended to pt and pt stated "Why did you have to hold up a finger to him like that. Don't you see that as rude? Would you do that to your mother". SW stated that the action was not meant to be rude but rather to boundary pt from interrupting her time to talk to SW. Pt then grabbed SW hand and said "we are still good. You know how to joke around with me. So I like you". Pt also came to office wanting her closet open and SW explained that dinner was coming up; staff would wait to open her closet afterwards. Pt whispered to , "I am wet and need to change my clothes. I didn't want to say that too loud for others to hear". As pt backed out of office another pt asked to speak to SW. Pt pulled the door shut and was heard saying "she's trying to leave, let her be". will continue to work with pt and pt family re: discharge plans.
--- NOTE | 2019-01-03 16:32 | NUR ---
Nursing Note pt was wandering around the halls, in and out of other patients rooms, aggravating other patients, pt was in a male patients room and states "this is my , I need him to know I am here, I am here Nile". told pt that she is in the hospital and that her was not here. attempt to show pt where her room was, pt angry, aggravated, and non cooperative with staff. was able to eventually get pt out of the other patients room with encouragement. will continue to monitor. timbo Henning.
--- NOTE | 2019-01-03 16:44 | NUR ---
Nursing Note pt is very anxious and worried about her , walking up and down the garza checking rooms for her , pt is aggravated with staff when trying to be redirected, pt told that she was in the hospital and redirected to her room. prn zyprexa given.
[2019-01-03] MEDS: MIRTAZAPINE 15 MG TABLET PO SCH (19:22)
[2019-01-03] MEDS: rOPINIRole 0.5 MG TABLET. PO SCH (19:23)
[2019-01-03] MEDS: OLANZapine 7.5 MG TABLET PO SCH (19:23)
[2019-01-03] MEDS: traZODone 50 MG TABLET. PO SCH (19:32)
[2019-01-03] MEDS: MELATONIN 3 MG TABLET PO SCH (19:32)
--- NOTE | 2019-01-03 21:04 | PN ---
DATE: 01/02/2019 PSYCHIATRIC PROGRESS NOTE This late entry 01/02/2019 covers elements not covered in my initial note. SUBJECTIVE: I met with the patient in the evening of 01/02/2019. The patient slept just 2 hours previous night. She has been hallucinating. The day before, she saw dog in the hallway. Reportedly, she saw her JEWEL STRINGER doctor as well. During the day on 01/02/2019, she felt there was a dog in her room under the bed. She has been holding things. REVIEW OF SYSTEMS: Ambulation impaired with walker. No CV, , pulmonary, eye system symptoms on review. MENTAL STATUS EXAM: Oriented to herself and situation. Speech coherent, rapid at times. Abstraction fair, computation impaired, language function intact, attention span short. She is easily distracted. LABORATORY DATA: Reviewed. IMPRESSION: Unchanged from initial note. PLAN: Increase Remeron to 15 mg at bedtime. Maintain Zoloft 50 mg a day. Rest unchanged from initial note. MAN Catalino CALLES MD DR: PREMA/nelda JOB#: [id number] / [id number]
--- NOTE | 2019-01-03 22:03 | PDOC ---
Exam Note: Virgilio Note: Please also refer to the separate dictated note~for this date of service dictated separately.~Patient seen individually. Discussed the patient with Nursing staff reviewed the chart.~Reviewed interim history and current functioning. Reviewed vital signs,~Labs/ Radiology~and current medications noted below. Continue current treatment with the changes noted in the dictated addendum note Assessment: Vital Signs: Vital Signs Date Time Temp Pulse Resp B/P (MAP) Pulse Ox O2 Delivery O2 Flow Rate FiO2 01/03/19 19:22 65 131/71 01/03/19 16:09 97.1 16 92 12/30/18 15:44 Room Air I&O Intake and Output 01/03/19 07:00 Intake Total 1560 ml Balance 1560 ml Intake Oral 1560 ml Labs: Laboratory Tests Test 01/03/19 07:28 01/03/19 11:35 01/03/19 17:21 01/03/19 19:27 Glucose (Fingerstick) 108 mg/dL (70-99) H 134 mg/dL (70-99) H 114 mg/dL (70-99) H 208 mg/dL (70-99) H Current Medications: Meds: Current Medications Metoprolol Tartrate (Lopressor) 25 mg BID PO Last administered on 01/03/19at 19:22; Start 12/23/18 at 21:00 Insulin Human Lispro (HumaLOG) 0-5 UNITS TIDWMEALS SQ Last administered on 01/02/19at 12:29; Start 12/24/18 at 08:00 Dextrose (Dextrose 50%-Water Syringe) 12.5 gm PRN Q15MIN PRN IV SEE COMMENTS; Start 12/23/18 at 20:30 Aspirin (Aspirin Enteric Coated) 81 mg DAILYWBKFT PO Last administered on 01/03/19at 08:30; Start 12/24/18 at 08:00 Acetaminophen (Tylenol) 650 mg PRN Q6HRS PRN PO PAIN / TEMP Last administered on 01/02/19at 09:10; Start 12/23/18 at 23:00 Multi-Ingredient Ointment (Analgesic [place]) 1 kirby PRN QID PRN TP MUSCLE PAIN Last administered on 01/02/19at 22:14; Start 12/23/18 at 23:00 Al Hydroxide/Mg Hydroxide (Mylanta Plus Xs) 15 ml PRN AFTMEALHC PRN PO DYSPEPSIA Last administered on 12/24/18 05:36; Start 12/23/18 at 23:00 Magnesium Hydroxide (Milk Of Magnesia) 2,400 mg PRN QHS PRN PO CONSTIPATION; Start 12/23/18 at 23:00 Ondansetron HCl (Zofran Odt) 4 mg PRN Q8HRS PRN PO NAUSEA/VOMITING Last administered on 12/24/18 05:15; Start 12/24/18 at 05:00 Olanzapine (ZyPREXA ZYDIS) 2.5 mg PRN Q4HRS PRN PO ANXIETY / AGITATION Last administered on 01/03/19 16:42; Start 12/24/18 at 12:15 Olanzapine (ZyPREXA) 7.5 mg HS PO Last administered on 01/03/19 19:23; Start 12/24/18 at 21:00 Ropinirole HCl (Requip) 0.5 mg QHS PO Last administered on 01/03/19 19:23; Start 12/28/18 at 21:00 Trazodone HCl (Desyrel) 25 mg PRN QHS PRN PO MAY REPEAT X 1 Last administered on 01/03/19 02:32; Start 12/28/18 at 16:45; Stop 01/03/19 at 17:08; Status DC Cefdinir (Omnicef) 300 mg BID PO Last administered on 01/03/19 19:23; Start 12/29/18 at 21:00 Loperamide HCl (Imodium) 2 mg PRN Q4HRS PRN PO DIARRHEA; Start 12/29/18 at 17:30 Lactobacillus Rhamnosus (Culturelle) 1 cap BID PO Last administered on 01/03/19 19:23; Start 12/31/18 at 09:00 Sertraline HCl (Zoloft) 50 mg DAILY PO Last administered on 01/03/19 08:30; Start 01/02/19 at 09:00 Mirtazapine (Remeron) 7.5 mg QHS PO Last administered on 01/01/19at 20:10; Start 01/01/19 at 21:00; Stop 01/02/19 at 18:27; Status DC Mirtazapine (Remeron) 15 mg QHS PO Last administered on 01/03/19at 19:22; Start 01/02/19 at 21:00 Trazodone HCl (Desyrel) 75 mg QHS PO Last administered on 01/03/19at 19:32; Start 01/03/19 at 21:00 Melatonin 3 mg HS PO Last administered on 01/03/19at 19:32; Start 01/03/19 at 21:00 I have reviewed the current psychotropics carefully including drug interactions. Risk benefit ratio favors no change other than as noted in my dictated progress note. 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
--- NOTE | 2019-01-03 22:45 | NUR ---
Nursing Note The patient was located in the day room for her medication and assessment. The patient took her medications whole. The patient was appropriate during interactions and was compliant with her assessment and cares. The patient is currently sleeping in her room.
[2019-01-03] MEDS: METHYL SALICYLATE/MENTHOL TOPICAL OINTMENT 29GM TUBE. TP PRN (22:56)
[2019-01-03] MEDS: ACETAMINOPHEN 325 MG TABLET PO PRN (23:19)
[2019-01-04 05:49] VITALS: BP 145/73
[2019-01-04] MEDS: INSULIN LISPRO 300 UNITS/3 ML INSULN.PEN. SQ SCH ×3 (08:00→17:00)
[2019-01-04 08:04] LABS: BASO % 1 % (0-3); EOS # 0.1 x10^3/uL (0.0-0.7); EOS % 1 % (0-3); HEMATOCRIT 32.3 % (36.0-47.0); HEMOGLOBIN 11.1 g/dL (12.0-15.5); LYMPH # 2.1 x10^3/uL (1.0-4.8); LYMPH % 38 % (24-48); MEAN CORPUSCULAR HEMOGLOBIN 32 pg (25-35); MEAN CORPUSCULAR HGB CONC 34 g/dL (31-37); MEAN CORPUSCULAR VOLUME 92 fL (79-100); MONO # 0.5 x10^3/uL (0.0-1.1); MONO % 8 % (0-9); NEUT # 2.9 x10^3uL (1.8-7.7); NEUT % 52 % (31-73); PLATELET COUNT 243 x10^3/uL (140-400); RED BLOOD COUNT 3.51 x10^6/uL (3.50-5.40); RED CELL DISTRIBUTION WIDTH 13.4 % (11.5-14.5); WHITE BLOOD COUNT 5.6 x10^3/uL (4.0-11.0)
[2019-01-04] MEDS: CEFDINIR 300 MG CAPSULE PO SCH ×2 (08:08→20:22)
[2019-01-04] MEDS: SERTRALINE 50 MG TABLET. PO SCH (08:08)
[2019-01-04] MEDS: LACTOBACILLUS RHAMNOSUS GG 1 CAPSULE. PO SCH ×2 (08:08→20:23)
[2019-01-04] MEDS: METOPROLOL TART IMMED RELEASE 25 MG TABLET PO SCH ×2 (08:08→20:38)
[2019-01-04] MEDS: ASPIRIN ENTERIC COATED 81 MG TABLET.DR. PO SCH (08:08)
[2019-01-04 08:14] LABS: ALBUMIN 3.5 g/dL (3.4-5.0); CALCIUM 9.1 mg/dL (8.5-10.1); CREATININE 1.5 mg/dL (0.6-1.0); GFR 33.2; POTASSIUM 3.9 mmol/L (3.5-5.1); TOTAL BILIRUBIN 0.4 mg/dL (0.2-1.0); TOTAL PROTEIN 7.1 g/dL (6.4-8.2)
--- NOTE | 2019-01-04 10:36 | NUR ---
WEEKLY NOTE: Pt dtr, Emelina, participated in team via telephone. Pt continues to hallucinates and has delusions. Pt sees dogs, and report that there are men in her room. Pt is interactive with staff and her peers. Pt is on Zoloft 50mg and pt did have a UTI and started Cefdinir for the next 10 days (started 12/29); in which pt dtr was concerned as pt has never had delusions and hallucinations before. Pt will look towards the end of next week. Pt is taking Zyprexa also and if the UTI clears, it is possible that the Zyprexa will be tapered off prior to discharge. SW will continue working with pt and pt family in discharge planning.
--- NOTE | 2019-01-04 10:43 | NUR ---
WEEKLY ACTIVITY THERAPY NOTE Date of Admission: 12/23/2018 Date of AT Assessment: 12/27/2018 Goal aimed: to elevate mood Initial goal: Pt. will participate in at least one Activity Therapy group per day. Weekly progress towards goal: did not achieve, no participation on Tuesday Group participation level: moderate Weekly highlights: encouraging others during exercises on Tuesday morning Behaviors observed: joins group late, participates a bit then falls asleep, social with others, talkative, hallucinations towards the end of this week, more wandering Plan: no change to goal Beneficial adaptations: reminders, invites, social, enjoys making people laugh
[2019-01-04 15:37] VITALS: BP 103/78
--- NOTE | 2019-01-04 17:09 | NUR ---
Pt was pleasant, interactive, compliant with meds and assessment. Wanders in and out of pt rooms, confused and disorganized at times. Sees dogs in her room.
[2019-01-04] MEDS: MELATONIN 3 MG TABLET PO SCH (20:21)
[2019-01-04] MEDS: MIRTAZAPINE 15 MG TABLET PO SCH (20:22)
[2019-01-04] MEDS: OLANZapine 7.5 MG TABLET PO SCH (20:22)
[2019-01-04] MEDS: traZODone 50 MG TABLET. PO SCH (20:22)
[2019-01-04] MEDS: rOPINIRole 0.5 MG TABLET. PO SCH (20:22)
--- NOTE | 2019-01-04 22:29 | PDOC ---
Exam Note: Virgilio Note: Please also refer to the separate dictated note~for this date of service dictated separately.~Patient seen individually. Discussed the patient with Nursing staff reviewed the chart.~Reviewed interim history and current functioning. Reviewed vital signs,~Labs/ Radiology~and current medications noted below. Continue current treatment with the changes noted in the dictated addendum note Assessment: Vital Signs: Vital Signs Date Time Temp Pulse Resp B/P (MAP) Pulse Ox O2 Delivery O2 Flow Rate FiO2 01/04/19 20:38 64 120/64 01/04/19 15:37 98.0 18 95 12/30/18 15:44 Room Air I&O Intake and Output 01/04/19 06:59 Intake Total 840 ml Balance 840 ml Intake Oral 840 ml # Voids 1 Labs: Laboratory Tests Test 01/04/19 07:21 01/04/19 07:23 01/04/19 11:56 01/04/19 17:10 Glucose (Fingerstick) 102 mg/dL (70-99) H 178 mg/dL (70-99) H 88 mg/dL (70-99) White Blood Count 5.6 x10^3/uL (4.0-11.0) Red Blood Count 3.51 x10^6/uL (3.50-5.40) Hemoglobin 11.1 g/dL (12.0-15.5) L Hematocrit 32.3 % (36.0-47.0) L Mean Corpuscular Volume 92 fL (79-100) Mean Corpuscular Hemoglobin 32 pg (25-35) Mean Corpuscular Hemoglobin Concent 34 g/dL (31-37) Red Cell Distribution Width 13.4 % (11.5-14.5) Platelet Count 243 x10^3/uL (140-400) Neutrophils (%) (Auto) 52 % (31-73) Lymphocytes (%) (Auto) 38 % (24-48) Monocytes (%) (Auto) 8 % (0-9) Eosinophils (%) (Auto) 1 % (0-3) Basophils (%) (Auto) 1 % (0-3) Neutrophils # (Auto) 2.9 x10^3uL (1.8-7.7) Lymphocytes # (Auto) 2.1 x10^3/uL (1.0-4.8) Monocytes # (Auto) 0.5 x10^3/uL (0.0-1.1) Eosinophils # (Auto) 0.1 x10^3/uL (0.0-0.7) Basophils # (Auto) 0.0 x10^3/uL (0.0-0.2) Sodium Level 140 mmol/L (136-145) Potassium Level 3.9 mmol/L (3.5-5.1) Chloride Level 105 mmol/L (98-107) Carbon Dioxide Level 25 mmol/L (21-32) Anion Gap 10 (6-14) Blood Urea Nitrogen 43 mg/dL (7-20) H Creatinine 1.5 mg/dL (0.6-1.0) H Estimated GFR (Cockcroft-Gault) 33.2 BUN/Creatinine Ratio 29 (6-20) H Glucose Level 112 mg/dL (70-99) H Calcium Level 9.1 mg/dL (8.5-10.1) Total Bilirubin 0.4 mg/dL (0.2-1.0) Aspartate Amino Transferase (AST) 22 U/L (15-37) Alanine Aminotransferase (ALT) 23 U/L (14-59) Alkaline Phosphatase 25 U/L (46-116) L Total Protein 7.1 g/dL (6.4-8.2) Albumin 3.5 g/dL (3.4-5.0) Albumin/Globulin Ratio 1.0 (1.0-1.7) Test 01/04/19 19:06 Glucose (Fingerstick) 170 mg/dL (70-99) H Current Medications: Meds: Current Medications Metoprolol Tartrate (Lopressor) 25 mg BID PO Last administered on 01/04/19at 20:38; Start 12/23/18 at 21:00 Insulin Human Lispro (HumaLOG) 0-5 UNITS TIDWMEALS SQ Last administered on 01/04/19at 12:54; Start 12/24/18 at 08:00 Dextrose (Dextrose 50%-Water Syringe) 12.5 gm PRN Q15MIN PRN IV SEE COMMENTS; Start 12/23/18 at 20:30 Aspirin (Aspirin Enteric Coated) 81 mg DAILYWBKFT PO Last administered on 01/04/19at 08:08; Start 12/24/18 at 08:00 Acetaminophen (Tylenol) 650 mg PRN Q6HRS PRN PO PAIN / TEMP Last administered on 01/03/19 23:19; Start 12/23/18 at 23:00 Multi-Ingredient Ointment (Analgesic Berkley) 1 kirby PRN QID PRN TP MUSCLE PAIN Last administered on 01/03/19 22:56; Start 12/23/18 at 23:00 Al Hydroxide/Mg Hydroxide (Mylanta Plus Xs) 15 ml PRN AFTMEALHC PRN PO DYSPEPSIA Last administered on 12/24/18 05:36; Start 12/23/18 at 23:00 Magnesium Hydroxide (Milk Of Magnesia) 2,400 mg PRN QHS PRN PO CONSTIPATION; Start 12/23/18 at 23:00 Ondansetron HCl (Zofran Odt) 4 mg PRN Q8HRS PRN PO NAUSEA/VOMITING Last administered on 12/24/18 05:15; Start 12/24/18 at 05:00 Olanzapine (ZyPREXA ZYDIS) 2.5 mg PRN Q4HRS PRN PO ANXIETY / AGITATION Last administered on 01/03/19 16:42; Start 12/24/18 at 12:15 Olanzapine (ZyPREXA) 7.5 mg HS PO Last administered on 01/04/19 20:22; Start 12/24/18 at 21:00 Ropinirole HCl (Requip) 0.5 mg QHS PO Last administered on 01/04/19 20:22; Start 12/28/18 at 21:00 Trazodone HCl (Desyrel) 25 mg PRN QHS PRN PO MAY REPEAT X 1 Last administered on 01/03/19 02:32; Start 12/28/18 at 16:45; Stop 01/03/19 at 17:08; Status DC Cefdinir (Omnicef) 300 mg BID PO Last administered on 01/04/19 20:22; Start 12/29/18 at 21:00; Stop 01/08/19 at 21:00 Loperamide HCl (Imodium) 2 mg PRN Q4HRS PRN PO DIARRHEA; Start 12/29/18 at 17:30 Lactobacillus Rhamnosus (Culturelle) 1 cap BID PO Last administered on 01/04/19 20:23; Start 12/31/18 at 09:00 Sertraline HCl (Zoloft) 50 mg DAILY PO Last administered on 01/04/19 08:08; Start 01/02/19 at 09:00 Mirtazapine (Remeron) 7.5 mg QHS PO Last administered on 01/01/19 20:10; Start 01/01/19 at 21:00; Stop 01/02/19 at 18:27; Status DC Mirtazapine (Remeron) 15 mg QHS PO Last administered on 01/04/19 20:22; Start 01/02/19 at 21:00 Trazodone HCl (Desyrel) 75 mg QHS PO Last administered on 01/04/19 20:22; Start 01/03/19 at 21:00 Melatonin 3 mg HS PO Last administered on 01/04/19 20:21; Start 01/03/19 at 21:00 I have reviewed the current psychotropics carefully including drug interactions. Risk benefit ratio favors no change other than as noted in my dictated progress note. 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
--- NOTE | 2019-01-05 02:21 | NUR ---
Nursing Note The patient was located in her room for her medication and assessment. The patient took her medications whole. The patient was appropriate during interactions and was compliant with her assessment and cares. The patient is currently sleeping in her room.
[2019-01-05 05:47] VITALS: BP 135/62
[2019-01-05] MEDS: ACETAMINOPHEN 325 MG TABLET PO PRN ×2 (06:13→21:40)
[2019-01-05] MEDS: INSULIN LISPRO 300 UNITS/3 ML INSULN.PEN. SQ SCH ×3 (08:00→17:00)
[2019-01-05] MEDS: ASPIRIN ENTERIC COATED 81 MG TABLET.DR. PO SCH (09:11)
[2019-01-05] MEDS: SERTRALINE 50 MG TABLET. PO SCH (09:11)
[2019-01-05] MEDS: CEFDINIR 300 MG CAPSULE PO SCH ×2 (09:11→20:04)
[2019-01-05] MEDS: LACTOBACILLUS RHAMNOSUS GG 1 CAPSULE. PO SCH ×2 (09:11→20:04)
[2019-01-05] MEDS: METOPROLOL TART IMMED RELEASE 25 MG TABLET PO SCH ×2 (09:12→20:05)
[2019-01-05 15:59] VITALS: BP 121/63
--- NOTE | 2019-01-05 19:14 | PN ---
DATE: 01/03/2019 PSYCHIATRIC PROGRESS NOTE This is a late entry 01/03/2019, covers elements not covered in my initial note. SUBJECTIVE: I met with the patient evening of 01/03/2019. The patient slept just half hour previous night, despite the trazodone and Remeron. She has been up during the day, pacing looking for her , Nile. Agitated verbally, aggressive. She saw a puppy lying in the room and men in her room, none of which is accurate, seems to have some intermittent hallucinations per nursing staff. REVIEW OF SYSTEMS: Ambulation impaired with walker. No CV, , pulmonary, eye system symptoms on review. MENTAL STATUS EXAM: Oriented to herself and situation. Speech is coherent, a little pressured at times. Abstraction fair, computation impaired, language function intact, attention span short. Mood and affect remains anxious, labile. She does have UTI. IMPRESSION: Major depressive disorder with psychotic features, urinary tract infection. Rest unchanged. PLAN: Continue current psychotropics. Increase trazodone from 25 mg at bedtime p.r.n., may repeat x 1 to 75 mg at bedtime p.r.n., may repeat x 1. Start melatonin 3 mg at bedtime. Treat the UTI. Rest unchanged for now. BEATRICE CALLES MD DR: PREMA/nelda JOB#: [id number] / [id number]
[2019-01-05] MEDS: rOPINIRole 0.5 MG TABLET. PO SCH (20:01)
[2019-01-05] MEDS: traZODone 50 MG TABLET. PO SCH (20:02)
[2019-01-05] MEDS: MELATONIN 3 MG TABLET PO SCH (20:04)
[2019-01-05] MEDS: OLANZapine 7.5 MG TABLET PO SCH (20:05)
[2019-01-05] MEDS: MIRTAZAPINE 15 MG TABLET PO SCH (20:05)
--- NOTE | 2019-01-05 20:30 | PN ---
DATE: 01/04/2019 PSYCHIATRIC PROGRESS NOTE This late entry 01/04/2019 covers elements not covered in my initial note. SUBJECTIVE: I met with the patient in the evening of 01/04/2019 staffed at a treatment team meeting with the entire team in the morning. The patient is sleeping an average of 4 hours at night. Appetite 100%, compliant with medications. The patient remains restless, wandering, slept 5-1/2 hours previous night. She has intermittent hallucinations, seeing dogs and men in her bed. Her daughter, Emelina, attended the treatment team meeting. We had a lengthy discussion about diagnosis, treatment, prognosis, future plans. She recognizes her children, grandchildren, and has been quite social per Emelina. REVIEW OF SYSTEMS: Ambulation impaired with walker. No CV, , pulmonary, eye system symptoms on review. MENTAL STATUS EXAM: Reasonably oriented. Speech is coherent, abstraction fair, computation impaired, language function intact, attention span short. Mood and affect remain somewhat depressed, anxious. She does have a urinary tract infection, on treatment currently, and UTI could certainly be worsening her mood symptoms and perception problems. IMPRESSION: Major depressive disorder with psychotic features; anxiety disorder, unspecified; cognitive disorder, unspecified; urinary tract infection. PLAN: Continue current psychotropics. Treat the UTI. Maintain Zoloft, Remeron, trazodone along with Zyprexa p.r.n., and scheduled Zyprexa 7.5 mg at bedtime. BEATRICE CALLES MD DR: PREMA/nelda JOB#: [id number] / [id number]
--- NOTE | 2019-01-05 22:38 | PDOC ---
Exam Note: Virgilio Note: Please also refer to the separate dictated note~for this date of service dictated separately.~Patient seen individually. Discussed the patient with Nursing staff reviewed the chart.~Reviewed interim history and current functioning. Reviewed vital signs,~Labs/ Radiology~and current medications noted below. Continue current treatment with the changes noted in the dictated addendum note Assessment: Vital Signs: Vital Signs Date Time Temp Pulse Resp B/P (MAP) Pulse Ox O2 Delivery O2 Flow Rate FiO2 01/05/19 20:05 62 121/63 01/05/19 15:59 97.5 20 97 12/30/18 15:44 Room Air I&O Intake and Output 01/05/19 06:59 Intake Total 1200 ml Balance 1200 ml Intake Oral 1200 ml # Voids 1 Labs: Laboratory Tests Test 01/05/19 07:25 01/05/19 11:50 01/05/19 16:33 01/05/19 19:23 Glucose (Fingerstick) 106 mg/dL (70-99) H 179 mg/dL (70-99) H 140 mg/dL (70-99) H 222 mg/dL (70-99) H Current Medications: Meds: Current Medications Metoprolol Tartrate (Lopressor) 25 mg BID PO Last administered on 01/05/19at 2 0:05; Start 12/23/18 at 21:00 Insulin Human Lispro (HumaLOG) 0-5 UNITS TIDWMEALS SQ Last administered on 01/04/19at 12:54; Start 12/24/18 at 08:00 Dextrose (Dextrose 50%-Water Syringe) 12.5 gm PRN Q15MIN PRN IV SEE COMMENTS; Start 12/23/18 at 20:30 Aspirin (Aspirin Enteric Coated) 81 mg DAILYWBKFT PO Last administered on 01/05/19at 09:11; Start 12/24/18 at 08:00 Acetaminophen (Tylenol) 650 mg PRN Q6HRS PRN PO PAIN / TEMP Last administered on 01/05/19at 21:40; Start 12/23/18 at 23:00 Multi-Ingredient Ointment (Analgesic [place]) 1 kirby PRN QID PRN TP MUSCLE PAIN Last administered on 01/03/19at 22:56; Start 12/23/18 at 23:00 Al Hydroxide/Mg Hydroxide (Mylanta Plus Xs) 15 ml PRN AFTMEALHC PRN PO DYSPEPSIA Last administered on 12/24/18 05:36; Start 12/23/18 at 23:00 Magnesium Hydroxide (Milk Of Magnesia) 2,400 mg PRN QHS PRN PO CONSTIPATION; Start 12/23/18 at 23:00 Ondansetron HCl (Zofran Odt) 4 mg PRN Q8HRS PRN PO NAUSEA/VOMITING Last administered on 12/24/18 05:15; Start 12/24/18 at 05:00 Olanzapine (ZyPREXA ZYDIS) 2.5 mg PRN Q4HRS PRN PO ANXIETY / AGITATION Last administered on 01/03/19 16:42; Start 12/24/18 at 12:15 Olanzapine (ZyPREXA) 7.5 mg HS PO Last administered on 01/05/19 20:05; Start 12/24/18 at 21:00 Ropinirole HCl (Requip) 0.5 mg QHS PO Last administered on 01/05/19 20:01; Start 12/28/18 at 21:00 Trazodone HCl (Desyrel) 25 mg PRN QHS PRN PO MAY REPEAT X 1 Last administered on 01/03/19 02:32; Start 12/28/18 at 16:45; Stop 01/03/19 at 17:08; Status DC Cefdinir (Omnicef) 300 mg BID PO Last administered on 01/05/19 20:04; Start 12/29/18 at 21:00; Stop 01/08/19 at 21:00 Loperamide HCl (Imodium) 2 mg PRN Q4HRS PRN PO DIARRHEA; Start 12/29/18 at 17:30 Lactobacillus Rhamnosus (Culturelle) 1 cap BID PO Last administered on 01/05/19 20:04; Start 12/31/18 at 09:00 Sertraline HCl (Zoloft) 50 mg DAILY PO Last administered on 01/05/19 09:11; Start 01/02/19 at 09:00 Mirtazapine (Remeron) 7.5 mg QHS PO Last administered on 01/01/19at 20:10; Start 01/01/19 at 21:00; Stop 5/21/19 at 18:27; Status DC Mirtazapine (Remeron) 15 mg QHS PO Last administered on 01/05/19at 20:05; Start 01/02/19 at 21:00 Trazodone HCl (Desyrel) 75 mg QHS PO Last administered on 01/05/19at 20:02; Start 01/03/19 at 21:00 Melatonin 3 mg HS PO Last administered on 01/05/19at 20:04; Start 01/03/19 at 21:00 I have reviewed the current psychotropics carefully including drug interactions. Risk benefit ratio favors no change other than as noted in my dictated progress note. 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
--- NOTE | 2019-01-05 23:59 | NUR ---
Nursing Note Pt was complaining of insomnia and back pain. Gave her tylenol then later a zydis and a backrub with robert daugherty. Effective, states she feels better already. Pleasant calm and cooperative. No behaviors this pm.
[2019-01-06 05:44] VITALS: BP 145/71
[2019-01-06] MEDS: ASPIRIN ENTERIC COATED 81 MG TABLET.DR. PO SCH (08:24)
[2019-01-06] MEDS: SERTRALINE 50 MG TABLET. PO SCH (08:24)
[2019-01-06] MEDS: LACTOBACILLUS RHAMNOSUS GG 1 CAPSULE. PO SCH ×2 (08:25→19:52)
[2019-01-06] MEDS: METOPROLOL TART IMMED RELEASE 25 MG TABLET PO SCH ×2 (08:25→19:52)
[2019-01-06] MEDS: CEFDINIR 300 MG CAPSULE PO SCH ×2 (08:25→19:51)
[2019-01-06] MEDS: INSULIN LISPRO 300 UNITS/3 ML INSULN.PEN. SQ SCH ×3 (08:28→17:00)
--- NOTE | 2019-01-06 13:14 | RAD ---
CT HEAD WO CONTRAST Clinical indications: Fall. COMPARISON: None available. Technique: Noncontrast axial cross sectional scanning of the head was performed. PQRS compliance Statement One or more of the following individualized dose reduction techniques were utilized for this study: 1. Automated exposure control 2. Adjustment of the mA and/or kV according to patient size 3. Use of iterative reconstruction technique Findings: Small symmetric bifrontal chronic subdural hygromas are seen which measure 9 mm in thickness. No acute intracranial hemorrhage or midline shift or mass-effect or hydrocephalus is seen. Mild bilateral periventricular white matter hypodensity is seen consistent with chronic small vessel ischemic disease in this age group. No skull fracture or pneumocephalus is seen. No opacification of the mastoid sinuses or the paranasal sinuses is seen. The maxillary sinuses are not completely seen in this study. Impression: No acute intracranial hemorrhage is seen. Mild chronic small vessel ischemic disease. Small symmetric bifrontal chronic subdural hygromas. Electronically signed by: Deejay Hurtado MD (01/06/2019 1:11 PM) [facility]
--- NOTE | 2019-01-06 13:16 | RAD ---
Three-view right knee study Clinical indications: Fall and pain. FINDINGS: Total right knee arthroplasty is evident which is well aligned. No acute fracture or lytic process is seen. No significant knee joint effusion is seen. Ossification of the upper medial collateral ligament is seen consistent with old trauma and may be related to the arthroplasty surgery IMPRESSION: Total right knee arthroplasty. No acute fracture. Electronically signed by: Deejay Hurtado MD (01/06/2019 1:12 PM) [facility]
[2019-01-06 15:37] VITALS: BP 125/60
--- NOTE | 2019-01-06 18:00 | NUR ---
Patient has been calm, cooperative, and slightly confused throughout the day. She was compliant with meds and assessment. Will continue to monitor and give report to oncoming shift.
[2019-01-06] MEDS ORDERED: traZODone 100 MG TABLET. PO PRN (19:45)
[2019-01-06] MEDS: MELATONIN 3 MG TABLET PO SCH (19:51)
[2019-01-06] MEDS: OLANZapine 7.5 MG TABLET PO SCH (19:52)
[2019-01-06] MEDS: rOPINIRole 0.5 MG TABLET. PO SCH (19:52)
[2019-01-06] MEDS: MIRTAZAPINE 15 MG TABLET PO SCH (19:52)
[2019-01-06] MEDS: traZODone 100 MG TABLET. PO SCH (19:53)
--- NOTE | 2019-01-06 22:34 | PDOC ---
Exam Note: Virgilio Note: Please also refer to the separate dictated note~for this date of service dictated separately.~Patient seen individually. Discussed the patient with Nursing staff reviewed the chart.~Reviewed interim history and current functioning. Reviewed vital signs,~Labs/ Radiology~and current medications noted below. Continue current treatment with the changes noted in the dictated addendum note Assessment: Vital Signs: Vital Signs Date Time Temp Pulse Resp B/P (MAP) Pulse Ox O2 Delivery O2 Flow Rate FiO2 01/06/19 19:52 68 125/60 01/06/19 15:37 97.8 18 98 I&O Intake and Output 01/06/19 06:59 Intake Total 360 ml Balance 360 ml Intake Oral 360 ml Labs: Laboratory Tests Test 01/06/19 07:18 01/06/19 11:48 01/06/19 16:34 01/06/19 19:40 Glucose (Fingerstick) 176 mg/dL (70-99) H 174 mg/dL (70-99) H 135 mg/dL (70-99) H 138 mg/dL (70-99) H Current Medications: Meds: Current Medications Metoprolol Tartrate (Lopressor) 25 mg BID PO Last administered on 01/06/19at 19:52; Start 12/23/18 at 21:00 Insulin Human Lispro (HumaLOG) 0-5 UNITS TIDWMEALS SQ Last administered on 01/06/19at 12:07; Start 12/24/18 at 08:00 Dextrose (Dextrose 50%-Water Syringe) 12.5 gm PRN Q15MIN PRN IV SEE COMMENTS; Start 12/23/18 at 20:30 Aspirin (Aspirin Enteric Coated) 81 mg DAILYWBKFT PO Last administered on 01/06/19at 08:24; Start 12/24/18 at 08:00 Acetaminophen (Tylenol) 650 mg PRN Q6HRS PRN PO PAIN / TEMP Last administered on 01/05/19at 21:40; Start 12/23/18 at 23:00 Multi-Ingredient Ointment (Analgesic [place]) 1 kirby PRN QID PRN TP MUSCLE PAIN Last administered on 01/03/19at 22:56; Start 12/23/18 at 23:00 Al Hydroxide/Mg Hydroxide (Mylanta Plus Xs) 15 ml PRN AFTMEALHC PRN PO DYSPEPSIA Last administered on 12/24/18 05:36; Start 12/23/18 at 23:00 Magnesium Hydroxide (Milk Of Magnesia) 2,400 mg PRN QHS PRN PO CONSTIPATION; Start 12/23/18 at 23:00 Ondansetron HCl (Zofran Odt) 4 mg PRN Q8HRS PRN PO NAUSEA/VOMITING Last administered on 12/24/18 05:15; Start 12/24/18 at 05:00 Olanzapine (ZyPREXA ZYDIS) 2.5 mg PRN Q4HRS PRN PO ANXIETY / AGITATION Last administered on 01/05/19 23:47; Start 12/24/18 at 12:15 Olanzapine (ZyPREXA) 7.5 mg HS PO Last administered on 01/06/19 19:52; Start 12/24/18 at 21:00 Ropinirole HCl (Requip) 0.5 mg QHS PO Last administered on 01/06/19 19:52; Start 12/28/18 at 21:00 Trazodone HCl (Desyrel) 25 mg PRN QHS PRN PO MAY REPEAT X 1 Last administered on 01/03/19 02:32; Start 12/28/18 at 16:45; Stop 01/03/19 at 17:08; Status DC Cefdinir (Omnicef) 300 mg BID PO Last administered on 01/06/19 19:51; Start 12/29/18 at 21:00; Stop 01/08/19 at 21:00 Loperamide HCl (Imodium) 2 mg PRN Q4HRS PRN PO DIARRHEA; Start 12/29/18 at 17:30 Lactobacillus Rhamnosus (Culturelle) 1 cap BID PO Last administered on 01/06/19 19:52; Start 12/31/18 at 09:00 Sertraline HCl (Zoloft) 50 mg DAILY PO Last administered on 01/06/19 08:24; Start 01/02/19 at 09:00 Mirtazapine (Remeron) 7.5 mg QHS PO Last administered on 01/01/19at 20:10; Start 01/01/19 at 21:00; Stop 01/02/19 at 18:27; Status DC Mirtazapine (Remeron) 15 mg QHS PO Last administered on 01/06/19 19:52; Start 01/02/19 at 21:00 Trazodone HCl (Desyrel) 75 mg QHS PO Last administered on 01/05/19at 20:02; S tart 01/03/19 at 21:00; Stop 01/06/19 at 19:41; Status DC Melatonin 3 mg HS PO Last administered on 01/06/19 19:51; Start 01/03/19 at 21:00 Trazodone HCl (Desyrel) 100 mg QHS PO Last administered on 01/06/19at 19:53; Start 01/06/19 at 21:00 Trazodone HCl (Desyrel) 100 mg PRN QHS PRN PO INSOMNIA; Start 01/06/19 at 19:45 I have reviewed the current psychotropics carefully including drug interactions. Risk benefit ratio favors no change other than as noted in my dictated progress note. 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
--- NOTE | 2019-01-07 01:09 | NUR ---
Pt has been wandering the unit this evening. Compliant with shower and HS medications. Pt irritable and argumentative with staff assisting pt to bed. Pt restless and up and down from bed until eventually falling asleep.
[2019-01-07] MEDS: ACETAMINOPHEN 325 MG TABLET PO PRN ×2 (06:45→21:36)
[2019-01-07 06:57] VITALS: BP 112/65
[2019-01-07] MEDS: INSULIN LISPRO 300 UNITS/3 ML INSULN.PEN. SQ SCH ×3 (08:00→17:00)
[2019-01-07] MEDS: SERTRALINE 50 MG TABLET. PO SCH (08:17)
[2019-01-07] MEDS: CEFDINIR 300 MG CAPSULE PO SCH ×2 (08:17→20:05)
[2019-01-07] MEDS: METOPROLOL TART IMMED RELEASE 25 MG TABLET PO SCH ×2 (08:17→20:05)
[2019-01-07] MEDS: LACTOBACILLUS RHAMNOSUS GG 1 CAPSULE. PO SCH ×2 (08:17→20:05)
[2019-01-07] MEDS: ASPIRIN ENTERIC COATED 81 MG TABLET.DR. PO SCH (08:17)
[2019-01-07 15:58] VITALS: BP 126/61
--- NOTE | 2019-01-07 18:30 | NUR ---
Patient has been calm, cooperative, and slightly confused throughout the day; she participated in a few group activities but also spent time wandering in the hallway. She was compliant with meds and assessment. Will continue to monitor and give report to oncoming shift.
--- NOTE | 2019-01-07 19:53 | PN ---
DATE: 01/05/2019 PSYCHIATRIC PROGRESS NOTE This late entry 01/05/2019 covers elements not covered in my initial note. SUBJECTIVE: I met with the patient in the evening of 01/05/2019. The patient slept 9 hours previous night. She complains of ongoing symptoms of restless legs and is on Requip. No clear hallucinations noted. REVIEW OF SYSTEMS: Ambulation impaired with walker. No CV, , pulmonary, eye system symptoms on review. MENTAL STATUS EXAM: Oriented to herself and situation. Speech coherent, rapid at times. Abstraction fair, computation impaired, language function intact, attention span short. Mood and affect less labile, anxious. No active hallucinations on close assessment by me individually. LABORATORY DATA: Reviewed. IMPRESSION: Unchanged from initial note. PLAN: No change from initial note. MAN Catalino CALLES MD DR: PREMA/nelda JOB#: [id number] / [id number]
[2019-01-07] MEDS: rOPINIRole 0.5 MG TABLET. PO SCH (20:05)
[2019-01-07] MEDS: OLANZapine 7.5 MG TABLET PO SCH (20:05)
[2019-01-07] MEDS: traZODone 100 MG TABLET. PO SCH (20:05)
[2019-01-07] MEDS: MELATONIN 3 MG TABLET PO SCH (20:05)
[2019-01-07] MEDS: MIRTAZAPINE 15 MG TABLET PO SCH (20:05)
--- NOTE | 2019-01-07 22:26 | PDOC ---
Exam Note: Virgilio Note: Please also refer to the separate dictated note~for this date of service dictated separately.~Patient seen individually. Discussed the patient with Nursing staff reviewed the chart.~Reviewed interim history and current functioning. Reviewed vital signs,~Labs/ Radiology~and current medications noted below. Continue current treatment with the changes noted in the dictated addendum note Assessment: Vital Signs: Vital Signs Date Time Temp Pulse Resp B/P (MAP) Pulse Ox O2 Delivery O2 Flow Rate FiO2 01/07/19 20:05 58 126/61 01/07/19 15:58 98.2 20 98 I&O Intake and Output 01/07/19 07:00 Intake Total 720 ml Balance 720 ml Intake Oral 720 ml Labs: Laboratory Tests Test 01/07/19 07:18 01/07/19 11:44 01/07/19 16:49 01/07/19 19:58 Glucose (Fingerstick) 92 mg/dL (70-99) 145 mg/dL (70-99) H 131 mg/dL (70-99) H 129 mg/dL (70-99) H Current Medications: Meds: Current Medications Metoprolol Tartrate (Lopressor) 25 mg BID PO Last administered on 01/07/19at 20:05; Start 12/23/18 at 21:00 Insulin Human Lispro (HumaLOG) 0-5 UNITS TIDWMEALS SQ Last administered on 01/06/19at 12:07; Start 12/24/18 at 08:00 Dextrose (Dextrose 50%-Water Syringe) 12.5 gm PRN Q15MIN PRN IV SEE COMMENTS; Start 12/23/18 at 20:30 Aspirin (Aspirin Enteric Coated) 81 mg DAILYWBKFT PO Last administered on 01/07/19at 08:17; Start 12/24/18 at 08:00 Acetaminophen (Tylenol) 650 mg PRN Q6HRS PRN PO PAIN / TEMP Last administered on 01/07/19at 21:36; Start 12/23/18 at 23:00 Multi-Ingredient Ointment (Analgesic [place]) 1 kirby PRN QID PRN TP MUSCLE PAIN Last administered on 01/03/19at 22:56; Start 12/23/18 at 23:00 Al Hydroxide/Mg Hydroxide (Mylanta Plus Xs) 15 ml PRN AFTMEALHC PRN PO DYSPEPSIA Last administered on 12/24/18 05:36; Start 12/23/18 at 23:00 Magnesium Hydroxide (Milk Of Magnesia) 2,400 mg PRN QHS PRN PO CONSTIPATION; Start 12/23/18 at 23:00 Ondansetron HCl (Zofran Odt) 4 mg PRN Q8HRS PRN PO NAUSEA/VOMITING Last administered on 12/24/18 05:15; Start 12/24/18 at 05:00 Olanzapine (ZyPREXA ZYDIS) 2.5 mg PRN Q4HRS PRN PO ANXIETY / AGITATION Last administered on 01/05/19 23:47; Start 12/24/18 at 12:15 Olanzapine (ZyPREXA) 7.5 mg HS PO Last administered on 01/07/19 20:05; Start 12/24/18 at 21:00 Ropinirole HCl (Requip) 0.5 mg QHS PO Last administered on 01/07/19 20:05; Start 12/28/18 at 21:00 Trazodone HCl (Desyrel) 25 mg PRN QHS PRN PO MAY REPEAT X 1 Last administered on 01/03/19at 02:32; Start 12/28/18 at 16:45; Stop 01/03/19 at 17:08; Status DC Cefdinir (Omnicef) 300 mg BID PO Last administered on 01/07/19at 20:05; Start 12/29/18 at 21:00; Stop 01/08/19 at 21:00 Loperamide HCl (Imodium) 2 mg PRN Q4HRS PRN PO DIARRHEA; Start 12/29/18 at 17:30 Lactobacillus Rhamnosus (Culturelle) 1 cap BID PO Last administered on 01/07/19 20:05; Start 12/31/18 at 09:00 Sertraline HCl (Zoloft) 50 mg DAILY PO Last administered on 01/07/19at 08:17; Start 01/02/19 at 09:00 Mirtazapine (Remeron) 7.5 mg QHS PO Last administered on 01/01/19at 20:10; Start 01/01/19 at 21:00; Stop 01/02/19 at 18:27; Status DC Mirtazapine (Remeron) 15 mg QHS PO Last administered on 01/07/19 20:05; Start 01/02/19 at 21:00 Trazodone HCl (Desyrel) 75 mg QHS PO Last administered on 01/05/19 20:02; Start 01/03/19 at 21:00; Stop 01/06/19 at 19:41; Status DC Melatonin 3 mg HS PO Last administered on 01/07/19 20:05; Start 01/03/19 at 21:00 Trazodone HCl (Desyrel) 100 mg QHS PO Last administered on 01/07/19 20:05; Start 01/06/19 at 21:00 Trazodone HCl (Desyrel) 100 mg PRN QHS PRN PO INSOMNIA Last administered on 01/07/19 22:20; Start 01/06/19 at 19:45 I have reviewed the current psychotropics carefully including drug interactions. Risk benefit ratio favors no change other than as noted in my dictated progress note. 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
--- NOTE | 2019-01-08 02:26 | NUR ---
Pt located in the dayroom interacting with other patients. Pt calm, interactive and compliant with medications. Pt restless later in the evening. Repeat Trazodone administered.
[2019-01-08 06:13] VITALS: BP 147/69
[2019-01-08] MEDS: INSULIN LISPRO 300 UNITS/3 ML INSULN.PEN. SQ SCH ×3 (08:00→17:25)
[2019-01-08] MEDS: LACTOBACILLUS RHAMNOSUS GG 1 CAPSULE. PO SCH ×2 (08:09→19:59)
[2019-01-08] MEDS: METOPROLOL TART IMMED RELEASE 25 MG TABLET PO SCH ×2 (08:09→20:08)
[2019-01-08] MEDS: ASPIRIN ENTERIC COATED 81 MG TABLET.DR. PO SCH (08:09)
[2019-01-08] MEDS: CEFDINIR 300 MG CAPSULE PO SCH ×2 (08:09→20:00)
[2019-01-08] MEDS: SERTRALINE 50 MG TABLET. PO SCH (08:09)
--- NOTE | 2019-01-08 10:15 | NUR ---
Patient slept in this morningand did not get up for breakfast. She got herself up after 09:30, then was assisted in the shower before moving to day room to eat breakfast. She was disorganized but compliant with meds and assessment, and socializing with other patients in day room. Will continue to monitor.
[2019-01-08] MEDS: ACETAMINOPHEN 325 MG TABLET PO PRN ×2 (11:08→21:41)
--- NOTE | 2019-01-08 12:07 | PN ---
DATE: 01/07/2019 PSYCHIATRIC PROGRESS NOTE This note covers elements not covered in my initial note 01/07/2019. SUBJECTIVE: I met with the patient in the evening. The patient slept 5-1/2 hours previous night. Previous night, she was argumentative, irritable, unsteady in her gait and previous morning she had a fall. She has a bed alarm now. Today, she has had a good day, less anxious, agitated. REVIEW OF SYSTEMS: Ambulation impaired with walker. No CV, , pulmonary, eye, ENT system symptoms on review. MENTAL STATUS EXAM: Oriented to herself and situation. Speech has some latency, coherent. Abstraction fair, computation impaired, language function intact, attention span short. Mood and affect generally improved. LABORATORY DATA: Reviewed. IMPRESSION: Unchanged from initial note. MAN Catalino CALLES MD DR: PREMA/nelda JOB#: [id number] / [id number]
[2019-01-08 16:07] VITALS: BP 100/54
[2019-01-08] MEDS: OLANZapine 7.5 MG TABLET PO SCH (19:59)
[2019-01-08] MEDS: traZODone 100 MG TABLET. PO SCH (19:59)
[2019-01-08] MEDS: rOPINIRole 0.5 MG TABLET. PO SCH (19:59)
[2019-01-08] MEDS: MELATONIN 3 MG TABLET PO SCH (20:00)
[2019-01-08] MEDS: MIRTAZAPINE 15 MG TABLET PO SCH (20:00)
[2019-01-08 20:07] VITALS: BP 151/66
[2019-01-08] MEDS: MAGNESIUM HYDROXIDE 2,400 MG/30 ML ORAL.SUSP. PO PRN (21:03)
--- NOTE | 2019-01-08 22:31 | PDOC ---
Exam Note: Virgilio Note: Please also refer to the separate dictated note~for this date of service dictated separately.~Patient seen individually. Discussed the patient with Nursing staff reviewed the chart.~Reviewed interim history and current functioning. Reviewed vital signs,~Labs/ Radiology~and current medications noted below. Continue current treatment with the changes noted in the dictated addendum note Assessment: Vital Signs: Vital Signs Date Time Temp Pulse Resp B/P (MAP) Pulse Ox O2 Delivery O2 Flow Rate FiO2 01/08/19 20:08 60 151/66 01/08/19 16:07 97.6 16 93 I&O Intake and Output 01/08/19 06:59 Intake Total 1080 ml Balance 1080 ml Intake Oral 1080 ml Labs: Laboratory Tests Test 01/08/19 07:39 01/08/19 11:33 01/08/19 16:56 01/08/19 19:20 Glucose (Fingerstick) 112 mg/dL (70-99) H 144 mg/dL (70-99) H 167 mg/dL (70-99) H 119 mg/dL (70-99) H Current Medications: Meds: Current Medications Metoprolol Tartrate (Lopressor) 25 mg BID PO Last administered on 01/08/19at 20:08; Start 12/23/18 at 21:00 Insulin Human Lispro (HumaLOG) 0-5 UNITS TIDWMEALS SQ Last administered on 01/08/19at 17:25; Start 12/24/18 at 08:00 Dextrose (Dextrose 50%-Water Syringe) 12.5 gm PRN Q15MIN PRN IV SEE COMMENTS; Start 12/23/18 at 20:30 Aspirin (Aspirin Enteric Coated) 81 mg DAILYWBKFT PO Last administered on 01/08/19at 08:09; Start 12/24/18 at 08:00 Acetaminophen (Tylenol) 650 mg PRN Q6HRS PRN PO PAIN / TEMP Last administered on 01/08/19at 21:41; Start 12/23/18 at 23:00 Multi-Ingredient Ointment (Analgesic [place]) 1 kirby PRN QID PRN TP MUSCLE PAIN Last administered on 01/03/19at 22:56; Start 12/23/18 at 23:00 Al Hydroxide/Mg Hydroxide (Mylanta Plus Xs) 15 ml PRN AFTMEALHC PRN PO DYSPEPSIA Last administered on 12/24/18 05:36; Start 12/23/18 at 23:00 Magnesium Hydroxide (Milk Of Magnesia) 2,400 mg PRN QHS PRN PO CONSTIPATION Last administered on 01/08/19 21:03; Start 12/23/18 at 23:00 Ondansetron HCl (Zofran Odt) 4 mg PRN Q8HRS PRN PO NAUSEA/VOMITING Last administered on 12/24/18 05:15; Start 12/24/18 at 05:00 Olanzapine (ZyPREXA ZYDIS) 2.5 mg PRN Q4HRS PRN PO ANXIETY / AGITATION Last administered on 01/05/19 23:47; Start 12/24/18 at 12:15 Olanzapine (ZyPREXA) 7.5 mg HS PO Last administered on 01/08/19 19:59; Start 12/24/18 at 21:00 Ropinirole HCl (Requip) 0.5 mg QHS PO Last administered on 01/08/19 19:59; Start 12/28/18 at 21:00 Trazodone HCl (Desyrel) 25 mg PRN QHS PRN PO MAY REPEAT X 1 Last administered on 01/03/19 02:32; Start 12/28/18 at 16:45; Stop 01/03/19 at 17:08; Status DC Cefdinir (Omnicef) 300 mg BID PO Last administered on 01/08/19 20:00; Start 12/29/18 at 21:00; Stop 01/08/19 at 21:00; Status DC Loperamide HCl (Imodium) 2 mg PRN Q4HRS PRN PO DIARRHEA; Start 12/29/18 at 17:30 Lactobacillus Rhamnosus (Culturelle) 1 cap BID PO Last administered on 01/08/19 19:59; Start 12/31/18 at 09:00 Sertraline HCl (Zoloft) 50 mg DAILY PO Last administered on 01/08/19 08:09; Start 01/02/19 at 09:00 Mirtazapine (Remeron) 7.5 mg QHS PO Last administered on 01/01/19 20:10; Start 01/01/19 at 21:00; Stop 5/21/19 at 18:27; Status DC Mirtazapine (Remeron) 15 mg QHS PO Last administered on 01/08/19 20:00; Start 01/02/19 at 21:00 Trazodone HCl (Desyrel) 75 mg QHS PO Last administered on 01/05/19at 20:02; Start 01/03/19 at 21:00; Stop 01/06/19 at 19:41; Status DC Melatonin 3 mg HS PO Last administered on 01/08/19at 20:00; Start 01/03/19 at 21:00 Trazodone HCl (Desyrel) 100 mg QHS PO Last administered on 01/08/19at 19:59; Start 01/06/19 at 21:00 Trazodone HCl (Desyrel) 100 mg PRN QHS PRN PO INSOMNIA Last administered on 01/07/19at 22:20; Start 01/06/19 at 19:45 I have reviewed the current psychotropics carefully including drug interactions. Risk benefit ratio favors no change other than as noted in my dictated progress note. 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
--- NOTE | 2019-01-08 23:16 | PN ---
DATE: 01/08/2019 PSYCHIATRIC PROGRESS NOTE This note covers elements not covered in my initial note 01/08/2019. SUBJECTIVE: I met with the patient in the evening of 01/08/2019. The patient slept 6-1/2 hours previous night. She has been attention seeking per nursing staff and as I met with her, she said she was sad, depressed because her son had committed suicide and the greatest pain for her mother is the loss of her child. She was quite appropriate discussing this at some length. Repeat trazodone was given previous night she slept better. REVIEW OF SYSTEMS: Ambulation impaired with walker. No CV, , pulmonary, eye, ENT system symptoms on review. MENTAL STATUS EXAM: Reasonably oriented. Speech is coherent, abstraction fair, computation impaired, language function intact, attention span short. Mood and affect remain somewhat depressed, anxious, but improved. LABORATORY DATA: Reviewed. IMPRESSION: Unchanged from initial note. PLAN: No change from initial note. BEATRICE CALLES MD DR: PREMA/nelda JOB#: [id number] / [id number]
--- NOTE | 2019-01-08 23:34 | NUR ---
Pt has been wandering the unit this evening. Pt pleasant and interactive. Compliant with whole medications. PRN MOM administered per pt request. Pt stated that she did not want to leave because it feels like home here.
--- NOTE | 2019-01-09 00:41 | PN ---
DATE: 01/06/2019 PSYCHIATRIC PROGRESS NOTE This late entry 01/06/2019 covers elements not covered in my initial note. SUBJECTIVE: I met with the patient in the evening of 01/06/2019. The patient slept half an hour previous night. She put herself on the floor previous evening, slept during the day yesterday, left arm has lymphedema. REVIEW OF SYSTEMS: Ambulation impaired with walker. No CV, , pulmonary, eye system symptoms on review. MENTAL STATUS EXAM: Oriented to herself and situation. Speech coherent, abstraction fair, computation impaired, language function intact. Mood and affect still somewhat depressed, anxious, but improved. LABORATORY DATA: Reviewed. IMPRESSION: Unchanged from initial note. PLAN: No change from initial note. Increase trazodone to 100 mg at bedtime, may repeat x 1 for insomnia. Rest unchanged. MAN Catalino CALLES MD DR: PREMA/nelda JOB#: [id number] / [id number]
[2019-01-09 05:59] VITALS: BP 119/85
[2019-01-09] MEDS: INSULIN LISPRO 300 UNITS/3 ML INSULN.PEN. SQ SCH ×3 (08:00→17:00)
[2019-01-09] MEDS: ASPIRIN ENTERIC COATED 81 MG TABLET.DR. PO SCH (08:11)
[2019-01-09] MEDS: METOPROLOL TART IMMED RELEASE 25 MG TABLET PO SCH ×2 (08:11→19:57)
[2019-01-09] MEDS: SERTRALINE 50 MG TABLET. PO SCH (08:11)
[2019-01-09] MEDS: LACTOBACILLUS RHAMNOSUS GG 1 CAPSULE. PO SCH ×2 (08:11→19:57)
[2019-01-09 16:30] VITALS: BP 149/63
--- NOTE | 2019-01-09 18:00 | NUR ---
Patient located in day room at shift change and has been calm, compliant, and mildly confused. She was mildly disorganized but compliant with meds and assessments; socializing with other patients in day room. Will continue to monitor and provide report to oncoming shift.
--- NOTE | 2019-01-09 18:20 | NUR ---
Patient had a FSBS of 58. She did not complain of any symptoms, and was given a cranberry juice. FSBS was checked after dinner, patient was WNL. Will continue to monitor.
[2019-01-09] MEDS: rOPINIRole 0.5 MG TABLET. PO SCH (19:56)
[2019-01-09] MEDS: traZODone 100 MG TABLET. PO SCH (19:57)
[2019-01-09] MEDS: MIRTAZAPINE 15 MG TABLET PO SCH (19:57)
[2019-01-09] MEDS: OLANZapine 7.5 MG TABLET PO SCH (19:57)
[2019-01-09] MEDS: MELATONIN 3 MG TABLET PO SCH (19:57)
--- NOTE | 2019-01-09 22:35 | PDOC ---
Exam Note: Virgilio Note: Please also refer to the separate dictated note~for this date of service dictated separately.~Patient seen individually. Discussed the patient with Nursing staff reviewed the chart.~Reviewed interim history and current functioning. Reviewed vital signs,~Labs/ Radiology~and current medications noted below. Continue current treatment with the changes noted in the dictated addendum note Assessment: Vital Signs: Vital Signs Date Time Temp Pulse Resp B/P (MAP) Pulse Ox O2 Delivery O2 Flow Rate FiO2 01/09/19 19:57 64 149/63 01/09/19 16:30 98.2 16 95 Room Air I&O Intake and Output 01/09/19 06:59 Intake Total 960 ml Balance 960 ml Intake Oral 960 ml # Voids 2 # Bowel Movements 1 Labs: Laboratory Tests Test 01/09/19 07:39 01/09/19 11:55 01/09/19 17:14 01/09/19 18:21 Glucose (Fingerstick) 94 mg/dL (70-99) 120 mg/dL (70-99) H 58 mg/dL (70-99) L 173 mg/dL (70-99) H Test 01/09/19 19:58 Glucose (Fingerstick) 199 mg/dL (70-99) H Current Medications: Meds: Current Medications Metoprolol Tartrate (Lopressor) 25 mg BID PO Last administered on 01/09/19at 19:57; Start 12/23/18 at 21:00 Insulin Human Lispro (HumaLOG) 0-5 UNITS TIDWMEALS SQ Last administered on 01/08/19at 17:25; Start 12/24/18 at 08:00 Dextrose (Dextrose 50%-Water Syringe) 12.5 gm PRN Q15MIN PRN IV SEE COMMENTS; Start 12/23/18 at 20:30 Aspirin (Aspirin Enteric Coated) 81 mg DAILYWBKFT PO Last administered on 01/09/19at 08:11; Start 12/24/18 at 08:00 Acetaminophen (Tylenol) 650 mg PRN Q6HRS PRN PO PAIN / TEMP Last administered on 01/08/19at 21:41; Start 12/23/18 at 23:00 Multi-Ingredient Ointment (Analgesic [place]) 1 kirby PRN QID PRN TP MUSCLE PAIN Last administered on 01/03/19at 22:56; Start 12/23/18 at 23:00 Al Hydroxide/Mg Hydroxide (Mylanta Plus Xs) 15 ml PRN AFTMEALHC PRN PO DYSPEPSIA Last administered on 12/24/18 05:36; Start 12/23/18 at 23:00 Magnesium Hydroxide (Milk Of Magnesia) 2,400 mg PRN QHS PRN PO CONSTIPATION Last administered on 01/08/19 21:03; Start 12/23/18 at 23:00 Ondansetron HCl (Zofran Odt) 4 mg PRN Q8HRS PRN PO NAUSEA/VOMITING Last administered on 12/24/18 05:15; Start 12/24/18 at 05:00 Olanzapine (ZyPREXA ZYDIS) 2.5 mg PRN Q4HRS PRN PO ANXIETY / AGITATION Last administered on 01/05/19 23:47; Start 12/24/18 at 12:15 Olanzapine (ZyPREXA) 7.5 mg HS PO Last administered on 01/09/19 19:57; Start 12/24/18 at 21:00 Ropinirole HCl (Requip) 0.5 mg QHS PO Last administered on 01/09/19 19:56; Start 12/28/18 at 21:00 Trazodone HCl (Desyrel) 25 mg PRN QHS PRN PO MAY REPEAT X 1 Last administered on 01/03/19 02:32; Start 12/28/18 at 16:45; Stop 01/03/19 at 17:08; Status DC Cefdinir (Omnicef) 300 mg BID PO Last administered on 01/08/19 20:00; Start 12/29/18 at 21:00; Stop 01/08/19 at 21:00; Status DC Loperamide HCl (Imodium) 2 mg PRN Q4HRS PRN PO DIARRHEA; Start 12/29/18 at 17:30 Lactobacillus Rhamnosus (Culturelle) 1 cap BID PO Last administered on 01/09/19 19:57; Start 12/31/18 at 09:00 Sertraline HCl (Zoloft) 50 mg DAILY PO Last administered on 01/09/19 08:11; Start 01/02/19 at 09:00 Mirtazapine (Remeron) 7.5 mg QHS PO Last administered on 01/01/19 20:10; Start 01/01/19 at 21:00; Stop 01/02/19 at 18:27; Status DC Mirtazapine (Remeron) 15 mg QHS PO Last administered on 01/09/19 19:57; Start 01/02/19 at 21:00 Trazodone HCl (Desyrel) 75 mg QHS PO Last administered on 01/05/19 20:02; Start 01/03/19 at 21:00; Stop 01/06/19 at 19:41; Status DC Melatonin 3 mg HS PO Last administered on 01/09/19 19:57; Start 01/03/19 at 21:00 Trazodone HCl (Desyrel) 100 mg QHS PO Last administered on 01/09/19 19:57; Start 01/06/19 at 21:00 Trazodone HCl (Desyrel) 100 mg PRN QHS PRN PO INSOMNIA Last administered on 01/07/19at 22:20; Start 01/06/19 at 19:45 I have reviewed the current psychotropics carefully including drug interactions. Risk benefit ratio favors no change other than as noted in my dictated progress note. 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
--- NOTE | 2019-01-09 22:48 | PN ---
DATE: 01/09/2019 PSYCHIATRIC PROGRESS NOTE This late entry 01/09/2019 covers elements not covered in my initial note. SUBJECTIVE: I met with the patient in the evening. The patient slept 7-1/2 hours previous night. She has had a good day today. She has been less anxious, less depressed and labile, less obsessive about the loss of her son. REVIEW OF SYSTEMS: Ambulation impaired with walker. No CV, , pulmonary, eye, ENT system symptoms on review. MENTAL STATUS EXAM: Oriented to herself and situation. Speech is coherent, abstraction fair, computation impaired, language function intact, attention span short. Mood and affect remain somewhat anxious, but better than before. LABORATORY DATA: Reviewed. IMPRESSION: Unchanged from initial note. PLAN: No change from initial note. MAN Catalino CALLES MD DR: PREMA/nelda JOB#: [id number] / [id number]
--- NOTE | 2019-01-10 02:53 | NUR ---
Early in shift pt in day room visiting or doing word search puzzles. Meds taken without difficulty. Pt friendly towards staff and has been sleeping well tonight.
[2019-01-10] MEDS: ACETAMINOPHEN 325 MG TABLET PO PRN ×2 (04:01→22:39)
[2019-01-10 06:28] VITALS: BP 115/52
[2019-01-10] MEDS: INSULIN LISPRO 300 UNITS/3 ML INSULN.PEN. SQ SCH ×3 (08:00→17:00)
[2019-01-10] MEDS: LACTOBACILLUS RHAMNOSUS GG 1 CAPSULE. PO SCH ×2 (08:05→20:33)
[2019-01-10] MEDS: ASPIRIN ENTERIC COATED 81 MG TABLET.DR. PO SCH (08:05)
[2019-01-10] MEDS: SERTRALINE 50 MG TABLET. PO SCH (08:06)
[2019-01-10] MEDS: METOPROLOL TART IMMED RELEASE 25 MG TABLET PO SCH ×2 (09:00→20:34)
[2019-01-10 09:01] LABS: BASO % 1 % (0-3); EOS # 0.1 x10^3/uL (0.0-0.7); EOS % 2 % (0-3); HEMATOCRIT 29.9 % (36.0-47.0); HEMOGLOBIN 10.1 g/dL (12.0-15.5); LYMPH # 1.8 x10^3/uL (1.0-4.8); LYMPH % 36 % (24-48); MEAN CORPUSCULAR HEMOGLOBIN 31 pg (25-35); MEAN CORPUSCULAR HGB CONC 34 g/dL (31-37); MEAN CORPUSCULAR VOLUME 92 fL (79-100); MONO # 0.4 x10^3/uL (0.0-1.1); MONO % 9 % (0-9); NEUT # 2.6 x10^3uL (1.8-7.7); NEUT % 52 % (31-73); PLATELET COUNT 183 x10^3/uL (140-400); RED BLOOD COUNT 3.23 x10^6/uL (3.50-5.40); RED CELL DISTRIBUTION WIDTH 14.3 % (11.5-14.5)
[2019-01-10 09:24] LABS: ALBUMIN 3.2 g/dL (3.4-5.0); CALCIUM 8.7 mg/dL (8.5-10.1); CREATININE 1.4 mg/dL (0.6-1.0); POTASSIUM 4.2 mmol/L (3.5-5.1); TOTAL BILIRUBIN 0.4 mg/dL (0.2-1.0); TOTAL PROTEIN 6.3 g/dL (6.4-8.2)
--- NOTE | 2019-01-10 13:40 | NUR ---
Pt in [facility] for assessment and meds, compliant with cares, calm, pleasant and interactive. Pt son, whom she hadn't seen in 2 yrs came for a visit today. No behaviors noted.
[2019-01-10 16:30] VITALS: BP 137/69
[2019-01-10] MEDS: rOPINIRole 0.5 MG TABLET. PO SCH (20:33)
[2019-01-10] MEDS: MIRTAZAPINE 15 MG TABLET PO SCH (20:33)
[2019-01-10] MEDS: OLANZapine 7.5 MG TABLET PO SCH (20:33)
[2019-01-10] MEDS: traZODone 100 MG TABLET. PO SCH (20:34)
[2019-01-10] MEDS: MELATONIN 3 MG TABLET PO SCH (20:34)
--- NOTE | 2019-01-10 22:25 | PDOC ---
Exam Note: Virgilio Note: Please also refer to the separate dictated note~for this date of service dictated separately.~Patient seen individually. Discussed the patient with Nursing staff reviewed the chart.~Reviewed interim history and current functioning. Reviewed vital signs,~Labs/ Radiology~and current medications noted below. Continue current treatment with the changes noted in the dictated addendum note Assessment: Vital Signs: Vital Signs Date Time Temp Pulse Resp B/P (MAP) Pulse Ox O2 Delivery O2 Flow Rate FiO2 01/10/19 20:34 61 137/69 01/10/19 16:30 98.1 18 96 01/09/19 16:30 Room Air I&O Intake and Output 01/10/19 06:59 Intake Total 1200 ml Balance 1200 ml Intake Oral 1200 ml Labs: Laboratory Tests Test 01/10/19 07:37 01/10/19 08:52 01/10/19 11:49 01/10/19 16:41 Glucose (Fingerstick) 111 mg/dL (70-99) H 112 mg/dL (70-99) H 140 mg/dL (70-99) H White Blood Count 5.0 x10^3/uL (4.0-11.0) Red Blood Count 3.23 x10^6/uL (3.50-5.40) L Hemoglobin 10.1 g/dL (12.0-15.5) L Hematocrit 29.9 % (36.0-47.0) L Mean Corpuscular Volume 92 fL (79-100) Mean Corpuscular Hemoglobin 31 pg (25-35) Mean Corpuscular Hemoglobin Concent 34 g/dL (31-37) Red Cell Distribution Width 14.3 % (11.5-14.5) Platelet Count 183 x10^3/uL (140-400) Neutrophils (%) (Auto) 52 % (31-73) Lymphocytes (%) (Auto) 36 % (24-48) Monocytes (%) (Auto) 9 % (0-9) Eosinophils (%) (Auto) 2 % (0-3) Basophils (%) (Auto) 1 % (0-3) Neutrophils # (Auto) 2.6 x10^3uL (1.8-7.7) Lymphocytes # (Auto) 1.8 x10^3/uL (1.0-4.8) Monocytes # (Auto) 0.4 x10^3/uL (0.0-1.1) Eosinophils # (Auto) 0.1 x10^3/uL (0.0-0.7) Basophils # (Auto) 0.0 x10^3/uL (0.0-0.2) Sodium Level 140 mmol/L (136-145) Potassium Level 4.2 mmol/L (3.5-5.1) Chloride Level 105 mmol/L (98-107) Carbon Dioxide Level 26 mmol/L (21-32) Anion Gap 9 (6-14) Blood Urea Nitrogen 33 mg/dL (7-20) H Creatinine 1.4 mg/dL (0.6-1.0) H Estimated GFR (Cockcroft-Gault) 36.0 BUN/Creatinine Ratio 24 (6-20) H Glucose Level 112 mg/dL (70-99) H Calcium Level 8.7 mg/dL (8.5-10.1) Total Bilirubin 0.4 mg/dL (0.2-1.0) Aspartate Amino Transferase (AST) 21 U/L (15-37) Alanine Aminotransferase (ALT) 22 U/L (14-59) Alkaline Phosphatase 22 U/L (46-116) L Total Protein 6.3 g/dL (6.4-8.2) L Albumin 3.2 g/dL (3.4-5.0) L Albumin/Globulin Ratio 1.0 (1.0-1.7) Test 01/10/19 19:16 Glucose (Fingerstick) 132 mg/dL (70-99) H Current Medications: Meds: Current Medications Metoprolol Tartrate (Lopressor) 25 mg BID PO Last administered on 01/10/19at 20:34; Start 12/23/18 at 21:00 Insulin Human Lispro (HumaLOG) 0-5 UNITS TIDWMEALS SQ Last administered on 01/08/19at 17:25; Start 12/24/18 at 08:00 Dextrose (Dextrose 50%-Water Syringe) 12.5 gm PRN Q15MIN PRN IV SEE COMMENTS; Start 12/23/18 at 20:30 Aspirin (Aspirin Enteric Coated) 81 mg DAILYWBKFT PO Last administered on 01/10/19at 08:05; Start 12/24/18 at 08:00 Acetaminophen (Tylenol) 650 mg PRN Q6HRS PRN PO PAIN / TEMP Last administered on 01/10/19 04:01; Start 12/23/18 at 23:00 Multi-Ingredient Ointment (Analgesic [place]) 1 kirby PRN QID PRN TP MUSCLE PAIN Last administered on 01/03/19 22:56; Start 12/23/18 at 23:00 Al Hydroxide/Mg Hydroxide (Mylanta Plus Xs) 15 ml PRN AFTMEALHC PRN PO DYSPEPSIA Last administered on 12/24/18 05:36; Start 12/23/18 at 23:00 Magnesium Hydroxide (Milk Of Magnesia) 2,400 mg PRN QHS PRN PO CONSTIPATION Last administered on 01/08/19 21:03; Start 12/23/18 at 23:00 Ondansetron HCl (Zofran Odt) 4 mg PRN Q8HRS PRN PO NAUSEA/VOMITING Last administered on 12/24/18 05:15; Start 12/24/18 at 05:00 Olanzapine (ZyPREXA ZYDIS) 2.5 mg PRN Q4HRS PRN PO ANXIETY / AGITATION Last administered on 01/05/19 23:47; Start 12/24/18 at 12:15 Olanzapine (ZyPREXA) 7.5 mg HS PO Last administered on 01/10/19 20:33; Start 12/24/18 at 21:00 Ropinirole HCl (Requip) 0.5 mg QHS PO Last administered on 01/10/19 20:33; Start 12/28/18 at 21:00 Trazodone HCl (Desyrel) 25 mg PRN QHS PRN PO MAY REPEAT X 1 Last administered on 01/03/19 02:32; Start 12/28/18 at 16:45; Stop 01/03/19 at 17:08; Status DC Cefdinir (Omnicef) 300 mg BID PO Last administered on 01/08/19 20:00; Start 12/29/18 at 21:00; Stop 01/08/19 at 21:00; Status DC Loperamide HCl (Imodium) 2 mg PRN Q4HRS PRN PO DIARRHEA; Start 12/29/18 at 17:30 Lactobacillus Rhamnosus (Culturelle) 1 cap BID PO Last administered on 01/10/19 20:33; Start 12/31/18 at 09:00 Sertraline HCl (Zoloft) 50 mg DAILY PO Last administered on 01/10/19 08:06; S tart 01/02/19 at 09:00 Mirtazapine (Remeron) 7.5 mg QHS PO Last administered on 01/01/19 20:10; Start 01/01/19 at 21:00; Stop 01/02/19 at 18:27; Status DC Mirtazapine (Remeron) 15 mg QHS PO Last administered on 01/10/19 20:33; Start 01/02/19 at 21:00 Trazodone HCl (Desyrel) 75 mg QHS PO Last administered on 01/05/19 20:02; Start 01/03/19 at 21:00; Stop 01/06/19 at 19:41; Status DC Melatonin 3 mg HS PO Last administered on 01/10/19 20:34; Start 01/03/19 at 21:00 Trazodone HCl (Desyrel) 100 mg QHS PO Last administered on 01/10/19 20:34; Start 01/06/19 at 21:00 Trazodone HCl (Desyrel) 100 mg PRN QHS PRN PO INSOMNIA Last administered on 01/07/19 22:20; Start 01/06/19 at 19:45 I have reviewed the current psychotropics carefully including drug interactions. Risk benefit ratio favors no change other than as noted in my dictated progress note. Diagnosis: Problems: (1) Brief reactive psychosis (2) Delusional disorders (3) Paranoid (4) Cognitive disorder (5) Anxiety disorder (6) Impulse control disorder (7) Major depressive disorder, recurrent episode (8) Psychosis, atypical (9) Psychotic depression BEATRICE CALLES MD January 10, 2019 22:25
--- NOTE | 2019-01-11 05:48 | NUR ---
Pt social and cooperative with meds. No behaviors this shift.
[2019-01-11 06:13] VITALS: BP 128/63
[2019-01-11] MEDS: INSULIN LISPRO 300 UNITS/3 ML INSULN.PEN. SQ SCH ×3 (08:00→17:00)
[2019-01-11] MEDS: SERTRALINE 50 MG TABLET. PO SCH (08:44)
[2019-01-11] MEDS: METOPROLOL TART IMMED RELEASE 25 MG TABLET PO SCH ×2 (08:44→19:48)
[2019-01-11] MEDS: LACTOBACILLUS RHAMNOSUS GG 1 CAPSULE. PO SCH ×2 (08:44→19:47)
[2019-01-11] MEDS: ASPIRIN ENTERIC COATED 81 MG TABLET.DR. PO SCH (08:45)
[2019-01-11] MEDS: MAGNESIUM HYDROXIDE 2,400 MG/30 ML ORAL.SUSP. PO PRN (08:48)
--- NOTE | 2019-01-11 09:44 | NUR ---
WEEKLY ACTIVITY THERAPY NOTE Date of Admission: 12/23/2018 Date of AT Assessment: 12/27/2018 Goal aimed: to elevate mood Initial goal: Pt. will participate in at least one Activity Therapy group per day. Weekly progress towards goal: did not meet, 09/21 Group participation level: minimal Weekly highlights: clapping and singing along with patriotic music on Tuesday afternoon, enjoyed arranging gomez on Tuesday Behaviors observed: sleeping and in room often, no observed hallucinations Plan: no change to goal Beneficial adaptations: reminders, invites, social, enjoys making people laugh
--- NOTE | 2019-01-11 10:00 | NUR ---
WEEKLY NOTE: Pt is eating 75% and sleeping 7 hours on average. Pt is more compliant, interactive with staff and peers. Pt is more approachable this week and has been walking the unit. Pt hallucinations have decreased. ELOS for this weekend. Behavioral HH services will be set up.
[2019-01-11 15:43] VITALS: BP 166/71
--- NOTE | 2019-01-11 18:17 | NUR ---
Pt in [facility] for assessment and meds, compliant with cares, calm, pleasant and interactive. Pt daughter from [place] came to visit pt today. Pt to discharge tomorrow. No behaviors noted.
[2019-01-11] MEDS: traZODone 100 MG TABLET. PO SCH (19:47)
[2019-01-11] MEDS: MELATONIN 3 MG TABLET PO SCH (19:47)
[2019-01-11] MEDS: rOPINIRole 0.5 MG TABLET. PO SCH (19:48)
[2019-01-11] MEDS: OLANZapine 7.5 MG TABLET PO SCH (19:48)
[2019-01-11] MEDS: MIRTAZAPINE 15 MG TABLET PO SCH (19:48)
--- NOTE | 2019-01-11 21:56 | NUR ---
Nursing note: Assumed care of pt in her room where she was sitting on her bed working her puzzles. She was pleasant, interactive, and compliant. No s/s of anxiety. no c/o pain.
--- NOTE | 2019-01-11 22:22 | PDOC ---
Exam Note: Virgilio Note: Please also refer to the separate dictated note~for this date of service dictated separately.~Patient seen individually. Discussed the patient with Nursing staff reviewed the chart.~Reviewed interim history and current functioning. Reviewed vital signs,~Labs/ Radiology~and current medications noted below. Continue current treatment with the changes noted in the dictated addendum note Assessment: Vital Signs: Vital Signs Date Time Temp Pulse Resp B/P (MAP) Pulse Ox O2 Delivery O2 Flow Rate FiO2 01/11/19 19:48 63 166/71 01/11/19 15:43 98.1 16 95 01/09/19 16:30 Room Air I&O Intake and Output 01/11/19 07:00 Intake Total 840 ml Balance 840 ml Intake Oral 840 ml # Voids 1 Labs: Laboratory Tests Test 01/11/19 08:04 01/11/19 11:40 01/11/19 17:05 01/11/19 19:07 Glucose (Fingerstick) 107 mg/dL (70-99) H 103 mg/dL (70-99) H 102 mg/dL (70-99) H 171 mg/dL (70-99) H Current Medications: Meds: Current Medications Metoprolol Tartrate (Lopressor) 25 mg BID PO Last administered on 01/11/19at 19:48; Start 12/23/18 at 21:00 Insulin Human Lispro (HumaLOG) 0-5 UNITS TIDWMEALS SQ Last administered on 01/08/19at 17:25; Start 12/24/18 at 08:00 Dextrose (Dextrose 50%-Water Syringe) 12.5 gm PRN Q15MIN PRN IV SEE COMMENTS; Start 12/23/18 at 20:30 Aspirin (Aspirin Enteric Coated) 81 mg DAILYWBKFT PO Last administered on 01/11/19at 08:45; Start 12/24/18 at 08:00 Acetaminophen (Tylenol) 650 mg PRN Q6HRS PRN PO PAIN / TEMP Last administered on 01/10/19at 22:39; Start 12/23/18 at 23:00 Multi-Ingredient Ointment (Analgesic [place]) 1 kirby PRN QID PRN TP MUSCLE PAIN Last administered on 01/03/19at 22:56; Start 12/23/18 at 23:00 Al Hydroxide/Mg Hydroxide (Mylanta Plus Xs) 15 ml PRN AFTMEALHC PRN PO DYSPEPSIA Last administered on 12/24/18 05:36; Start 12/23/18 at 23:00 Magnesium Hydroxide (Milk Of Magnesia) 2,400 mg PRN QHS PRN PO CONSTIPATION Last administered on 01/11/19 08:48; Start 12/23/18 at 23:00 Ondansetron HCl (Zofran Odt) 4 mg PRN Q8HRS PRN PO NAUSEA/VOMITING Last administered on 12/24/18 05:15; Start 12/24/18 at 05:00 Olanzapine (ZyPREXA ZYDIS) 2.5 mg PRN Q4HRS PRN PO ANXIETY / AGITATION Last administered on 01/05/19 23:47; Start 12/24/18 at 12:15 Olanzapine (ZyPREXA) 7.5 mg HS PO Last administered on 01/11/19 19:48; Start 12/24/18 at 21:00 Ropinirole HCl (Requip) 0.5 mg QHS PO Last administered on 01/11/19 19:48; Start 12/28/18 at 21:00 Trazodone HCl (Desyrel) 25 mg PRN QHS PRN PO MAY REPEAT X 1 Last administered on 01/03/19 02:32; Start 12/28/18 at 16:45; Stop 01/03/19 at 17:08; Status DC Cefdinir (Omnicef) 300 mg BID PO Last administered on 01/08/19 20:00; Start 12/29/18 at 21:00; Stop 01/08/19 at 21:00; Status DC Loperamide HCl (Imodium) 2 mg PRN Q4HRS PRN PO DIARRHEA; Start 12/29/18 at 17:30 Lactobacillus Rhamnosus (Culturelle) 1 cap BID PO Last administered on 01/11/19 19:47; Start 12/31/18 at 09:00 Sertraline HCl (Zoloft) 50 mg DAILY PO Last administered on 01/11/19 08:44; Start 01/02/19 at 09:00 Mirtazapine (Remeron) 7.5 mg QHS PO Last administered on 01/01/19 20:10; Start 01/01/19 at 21:00; Stop 01/02/19 at 18:27; Status DC Mirtazapine (Remeron) 15 mg QHS PO Last administered on 01/11/19at 19:48; Start 01/02/19 at 21:00 Trazodone HCl (Desyrel) 75 mg QHS PO Last administered on 01/05/19at 20:02; Start 01/03/19 at 21:00; Stop 01/06/19 at 19:41; Status DC Melatonin 3 mg HS PO Last administered on 01/11/19at 19:47; Start 01/03/19 at 21:00 Trazodone HCl (Desyrel) 100 mg QHS PO Last administered on 01/11/19 19:47; Start 01/06/19 at 21:00 Trazodone HCl (Desyrel) 100 mg PRN QHS PRN PO INSOMNIA Last administered on 01/07/19at 22:20; Start 01/06/19 at 19:45 I have reviewed the current psychotropics carefully including drug interactions. Risk benefit ratio favors no change other than as noted in my dictated progress note. Diagnosis: Problems: (1) Brief reactive psychosis (2) Delusional disorders (3) Paranoid (4) Cognitive disorder (5) Anxiety disorder (6) Impulse control disorder (7) Major depressive disorder, recurrent episode (8) Psychosis, atypical (9) Psychotic depression BEATRICE CALLES MD January 11, 2019 22:22
[2019-01-11] MEDS: ACETAMINOPHEN 325 MG TABLET PO PRN (23:00)
[2019-01-11] MEDS ORDERED: ACET325T9 PO (23:09)
[2019-01-11] MEDS ORDERED: ASPI-630 PO (23:10)
[2019-01-11] MEDS ORDERED: INSU100V SQ (23:12)
[2019-01-11] MEDS ORDERED: LOPE2TAB27 PO (23:15)
[2019-01-11] MEDS ORDERED: LACT1CAP21 PO (23:15)
[2019-01-11] MEDS ORDERED: MAG30ORA2 PO (23:16)
[2019-01-11] MEDS ORDERED: MAGN2400 PO (23:17)
[2019-01-11] MEDS ORDERED: MELA3TAB2 PO (23:17)
[2019-01-11] MEDS ORDERED: METO25TA4 PO (23:18)
[2019-01-11] MEDS ORDERED: METH29OI TP (23:18)
[2019-01-11] MEDS ORDERED: MIRT15TA3 PO (23:19)
[2019-01-11] MEDS ORDERED: OLAN5TAB5 PO ×2 (23:20)
[2019-01-11] MEDS ORDERED: ONDA4TAB12 PO (23:21)
[2019-01-11] MEDS ORDERED: SERT50TA8 PO (23:22)
[2019-01-11] MEDS ORDERED: ROPI0.5T PO (23:22)
[2019-01-11] MEDS ORDERED: TRAZ-86 PO ×2 (23:23→23:24)
[2019-01-12] MEDS: ACETAMINOPHEN 325 MG TABLET PO PRN (04:21)
[2019-01-12 05:51] VITALS: BP 115/74
[2019-01-12 07:47] VITALS: BP 115/74
[2019-01-12] MEDS: LACTOBACILLUS RHAMNOSUS GG 1 CAPSULE. PO SCH (07:47)
[2019-01-12] MEDS: METOPROLOL TART IMMED RELEASE 25 MG TABLET PO SCH (07:47)
[2019-01-12] MEDS: ASPIRIN ENTERIC COATED 81 MG TABLET.DR. PO SCH (07:47)
[2019-01-12] MEDS: SERTRALINE 50 MG TABLET. PO SCH (07:47)
[2019-01-12] MEDS: INSULIN LISPRO 300 UNITS/3 ML INSULN.PEN. SQ SCH (07:47)
--- NOTE | 2019-01-12 09:00 | NUR ---
pt out to breakfast late as she said she did not sleep well. pt pleasant and compliant with meds. Dr Julien wanted pt to follow up with psychiatry. Dtr said she would locate someone close to pts home.
--- NOTE | 2019-01-12 09:01 | NUR ---
[facility] Social Work Discharge Planning Form Patient Name ISA ALVARADO Admit Date: 12/23/18 DISCHARGE PLAN Discharge Destination: Home alone with services Care Assessment: N/A Level II Assessment: N/A Transportation: Pt Emelina pierce to pick pt up around 10:00 Special Instructions/Notes: Please fax pt medication list to the PCP fax below and the fax for HH services. DISCHARGE TO HOME: Address: [address] [place], [place] [address]se [facility], [address]; [place] [address] Responsible Republican: Pt is a self-sign Pharmacy: [facility]; [address], [place] [address] Contact Information: Primary Care Follow Up: Dr. Ivonne Avalos Contact Information: [address] [facility] [address] [facility] [address], [place] [address] Appointment: Tuesday01/19/19 @ 1:30 Home Health: [facility] Contact Information: [address], [address]; [place] [address] Appointment: To start services with 48 hours
[2019-01-12] MEDS ORDERED: GLIMEPIRIDE 2 MG TABLET PO SCH (09:45)
[2019-01-12] MEDS ORDERED: GLIM1TAB PO (09:45)
--- NOTE | 2019-01-12 10:50 | NUR ---
Transition Record was faxed to follow-up provider with the following elements: Reason for admission, procedures, tests, principal diagnosis, pending studies, patient instructions, 07/03 contact information for unit, phone number to obtain pending test results, plan for follow-up care, physician follow-up, advanced directive information, and medication list with dose, duration and instructions. This information was included in the following documents: History and physical, lab results, study results, progress notes, social work planning form, DC instruction form, patient visit summary, and medication reconciliation form. Date & time record faxed:01/12/19 1000 Record faxed to: Dr Avalos, home health Record discussed with/ report given to:patient and daughter
--- NOTE | 2019-01-12 18:06 | PDOC ---
Exam Note: Virgilio Note: Please also refer to the separate dictated note~for this date of service dictated separately.~Patient seen individually. Discussed the patient with Nursing staff reviewed the chart.~Reviewed interim history and current functioning. Reviewed vital signs,~Labs/ Radiology~and current medications noted below. Continue current treatment with the changes noted in the dictated addendum note Assessment: Vital Signs: Vital Signs Date Time Temp Pulse Resp B/P (MAP) Pulse Ox O2 Delivery O2 Flow Rate FiO2 01/12/19 07:47 63 115/74 01/12/19 05:51 97.2 18 99 01/09/19 16:30 Room Air I&O Intake and Output 01/12/19 07:00 Intake Total 1200 ml Balance 1200 ml Intake Oral 1200 ml Labs: Laboratory Tests Test 01/11/19 19:07 01/12/19 07:06 Glucose (Fingerstick) 171 mg/dL (70-99) H 112 mg/dL (70-99) H Current Medications: Meds: Current Medications Metoprolol Tartrate (Lopressor) 25 mg BID PO Last administered on 01/12/19at 07:47; Start 12/23/18 at 21:00; Stop 01/12/19 at 10:53; Status DC Insulin Human Lispro (HumaLOG) 0-5 UNITS TIDWMEALS SQ Last administered on 01/08/19at 17:25; Start 12/24/18 at 08:00; Stop 01/12/19 at 10:53; Status DC Dextrose (Dextrose 50%-Water Syringe) 12.5 gm PRN Q15MIN PRN IV SEE COMMENTS; Start 12/23/18 at 20:30; Stop 01/12/19 at 10:53; Status DC Aspirin (Aspirin Enteric Coated) 81 mg DAILYWBKFT PO Last administered on 01/12/19at 07:47; Start 12/24/18 at 08:00; Stop 01/12/19 at 10:53; Status DC Acetaminophen (Tylenol) 650 mg PRN Q6HRS PRN PO PAIN / TEMP Last administered on 01/12/19at 04:21; Start 12/23/18 at 23:00; Stop 01/12/19 at 10:53; Status DC Multi-Ingredient Ointment (Analgesic [place]) 1 rickey PRN QID PRN TP MUSCLE PAIN Last administered on 01/03/19 22:56; Start 12/23/18 at 23:00; Stop 01/12/19 at 10:53; Status DC Al Hydroxide/Mg Hydroxide (Mylanta Plus Xs) 15 ml PRN AFTMEALHC PRN PO DYSPEPSIA Last administered on 12/24/18 05:36; Start 12/23/18 at 23:00; Stop 01/12/19 at 10:53; Status DC Magnesium Hydroxide (Milk Of Magnesia) 2,400 mg PRN QHS PRN PO CONSTIPATION Last administered on 01/11/19 08:48; Start 12/23/18 at 23:00; Stop 01/12/19 at 10:53; Status DC Ondansetron HCl (Zofran Odt) 4 mg PRN Q8HRS PRN PO NAUSEA/VOMITING Last administered on 12/24/18 05:15; Start 12/24/18 at 05:00; Stop 01/12/19 at 10:53; Status DC Olanzapine (ZyPREXA ZYDIS) 2.5 mg PRN Q4HRS PRN PO ANXIETY / AGITATION Last administered on 01/05/19at 23:47; Start 12/24/18 at 12:15; Stop 01/12/19 at 10:53; Status DC Olanzapine (ZyPREXA) 7.5 mg HS PO Last administered on 01/11/19 19:48; Start 12/24/18 at 21:00; Stop 01/12/19 at 10:53; Status DC Ropinirole HCl (Requip) 0.5 mg QHS PO Last administered on 01/11/19 19:48; Start 12/28/18 at 21:00; Stop 01/12/19 at 10:53; Status DC Trazodone HCl (Desyrel) 25 mg PRN QHS PRN PO MAY REPEAT X 1 Last administered on 01/03/19at 02:32; Start 12/28/18 at 16:45; Stop 01/03/19 at 17:08; Status DC Cefdinir (Omnicef) 300 mg BID PO Last administered on 01/08/19at 20:00; Start 12/29/18 at 21:00; Stop 01/08/19 at 21:00; Status DC Loperamide HCl (Imodium) 2 mg PRN Q4HRS PRN PO DIARRHEA; Start 12/29/18 at 17:30; Stop 01/12/19 at 10:53; Status DC Lactobacillus Rhamnosus (Culturelle) 1 cap BID PO Last administered on 01/12/19at 07:47; Start 12/31/18 at 09:00; Stop 01/12/19 at 10:53; Status DC Sertraline HCl (Zoloft) 50 mg DAILY PO Last administered on 01/12/19at 07:47; Start 01/02/19 at 09:00; Stop 01/12/19 at 10:53; Status DC Mirtazapine (Remeron) 7.5 mg QHS PO Last administered on 01/01/19at 20:10; Start 01/01/19 at 21:00; Stop 01/02/19 at 18:27; Status DC Mirtazapine (Remeron) 15 mg QHS PO Last administered on 01/11/19at 19:48; Start 01/02/19 at 21:00; Stop 01/12/19 at 10:53; Status DC Trazodone HCl (Desyrel) 75 mg QHS PO Last administered on 01/05/19at 20:02; Start 01/03/19 at 21:00; Stop 01/06/19 at 19:41; Status DC Melatonin 3 mg HS PO Last administered on 01/11/19at 19:47; Start 01/03/19 at 21:00; Stop 01/12/19 at 10:53; Status DC Trazodone HCl (Desyrel) 100 mg QHS PO Last administered on 01/11/19at 19:47; Start 01/06/19 at 21:00; Stop 01/12/19 at 10:53; Status DC Trazodone HCl (Desyrel) 100 mg PRN QHS PRN PO INSOMNIA Last administered on 01/07/19at 22:20; Start 01/06/19 at 19:45; Stop 01/12/19 at 10:53; Status DC Glimepiride (Amaryl) 2 mg DAILY PO Last administered on 01/12/19at 09:45; Start 01/12/19 at 09:45; Stop 01/12/19 at 10:53; Status DC Active Scripts Active Reported Amaryl (Glimepiride) 1 Mg Tablet 2 Mg PO DAILY Trazodone Hcl 100 Mg Tablet 100 Mg PO PRN QHS PRN Trazodone Hcl 100 Mg Tablet 100 Mg PO QHS Requip (Ropinirole Hcl) 0.5 Mg Tablet 0.5 Mg PO QHS Sertraline Hcl 50 Mg Tablet 50 Mg PO DAILY Zyprexa Zydis (Olanzapine) 5 Mg Tab.rapdis 2.5 Mg PO PRN Q4HRS PRN Zyprexa Zydis (Olanzapine) 5 Mg Tab.rapdis 7.5 Mg PO QHS Mirtazapine 15 Mg Tablet 15 Mg PO QHS Metoprolol Tartrate 25 Mg Tablet 25 Mg PO BID Analgesic [place] (Methyl Salicylate/Menthol) 28 Gm Oint...g. 1 Rickey TP PRN QID PRN Melatonin 3 Mg Tablet 3 Mg PO QHS Loperamide (Loperamide Hcl) 2 Mg Tablet 2 Mg PO PRN Q4HRS PRN Aspirin 81 Mg Tab.chew 81 Mg PO DAILYWBKFT Tylenol (Acetaminophen) 325 Mg Tablet 650 Mg PO PRN Q6HRS PRN I have reviewed the current psychotropics carefully including drug interactions. Risk benefit ratio favors no change other than as noted in my dictated progress note. Diagnosis: Problems: (1) Major depressive disorder, recurrent episode (2) Impulse control disorder (3) Anxiety disorder (4) Cognitive disorder BEATRICE CALLES MD January 12, 2019 18:06
--- NOTE | 2019-01-12 22:08 | NUR ---
Nursing Note Emelina, daughter of Purvi called and stated that no meds were not available at [facility]. That location is currently closed. Called all meds to [facility] 24 hour pharmacy at [address] Instructed Emelina on admin of all meds and to pick them up in 1 hour from [facility].
--- NOTE | 2019-01-13 00:07 | PN ---
DATE: 01/10/2019 PSYCHIATRIC PROGRESS NOTE This late entry 01/10/2019 covers elements not covered in my initial note. SUBJECTIVE: I met with the patient in the evening of 01/10/2019. The patient slept for 3/4 hours previous night. She has been interactive, more appropriate. States she really likes it here, wants to stay here care home. I addressed this with her at some length acute care, psychiatric hospitalization for stabilization. in the morning, more interactive with others around her. REVIEW OF SYSTEMS: Ambulation impaired with walker. No CV, , pulmonary, eye, ENT system symptoms on review. Reliability fair. MENTAL STATUS EXAM: Oriented to herself and situation. Speech is coherent, abstraction fair, computation impaired, language function intact. Mood and affect is improved. No suicidal or homicidal ideation. LABORATORY DATA: Reviewed. IMPRESSION: Unchanged from initial note. PLAN: No change from initial note. BEATRICE CALLES MD DR: PREMA/nelda JOB#: [id number] / [id number]
--- NOTE | 2019-01-13 00:09 | PN ---
DATE: 01/11/2019 PSYCHIATRIC PROGRESS NOTE This late entry 01/11/2019 covers elements not covered in my initial note. SUBJECTIVE: I met with the patient in the evening of 01/11/2019 and staffed at a treatment team meeting with the entire team in the morning. The patient slept 5-1/2 hours previous night. Appetite 75%. We discussed her progress, diagnosis, discharge plans at length and the plan is for her to go back to her home in [place], [place]. Her son visited her yesterday and she has addressed this with me as I met with her in the evening. She is more approachable per nursing staff. Mood is better, compliant with medications, more social. REVIEW OF SYSTEMS: Ambulation impaired with walker. No CV, , pulmonary, eye system symptoms on review. MENTAL STATUS EXAM: Reasonably oriented. Speech is coherent, abstraction fair, computation somewhat impaired, language function intact, attention span short. Mood and affect is improved. No suicidal or homicidal ideation. LABORATORY DATA: Reviewed. IMPRESSION: Unchanged from initial note. PLAN: No change from initial note. MAN Catalino CALLES MD DR: PREMA/nelda JOB#: [id number] / [id number]
--- NOTE | 2019-01-15 00:01 | DS ---
DATE OF DISCHARGE: 01/12/2019 DISCHARGE SUMMARY/PSYCHIATRIC PROGRESS NOTE This late entry, 01/12/2019, covers elements not covered in my initial note. REASON FOR ADMISSION: Please refer to the admission history for detail. Briefly, the patient is an 83-year-old female referred to us from [facility] on account of worsening symptoms of depression with suicidal ideation with a plan to cut her wrists. She cut her wrist 1 week previously, but did not seek medical attention. Her son committed suicide 2 years ago and she has been progressively increasingly depressed since then. She was found in the garza in her building by the neighbors yelling out about severe abdominal pain. Workup in the ER was negative. She was deemed a potential danger to herself due to the suicidal ideation, referred for inpatient psychiatric stabilization. SIGNIFICANT FINDINGS AND CLINICAL COURSE: Following admission, the patient was seen daily individually by myself from a psychiatric standpoint, medical followup with Dr. Canseco. The patient was extremely depressed, withdrawn, anxious. Adjustments were made in her psychotropics. She seemed to respond to a combination of Zoloft 50 mg a day, Remeron 15 mg at bedtime, melatonin 3 mg at bedtime, trazodone 100 mg at bedtime, may repeat x 1, remained on Requip 0.5 mg at bedtime and Zyprexa p.r.n., and scheduled Zyprexa 7.5 mg p.o. at bedtime. Prior to discharge on 01/12/2019; review of systems, ambulation impaired with walker. No CV, , pulmonary, eye, ENT system symptoms on review. Reliability poor. MENTAL STATUS EXAM: Reasonably oriented to herself, situation, date and time. Speech is coherent, abstraction fair, computation impaired, language function intact, attention span fair. Mood and affect is improved. No suicidal ideation at discharge. CONDITION AT DISCHARGE: Improved. FINAL DIAGNOSES: Major depressive disorder, recurrent, in partial remission; anxiety disorder, unspecified; cognitive disorder, unspecified. Rest unchanged from admission. DISCHARGE MEDICATIONS: Please refer to the [facility]. DISCHARGE INSTRUCTIONS: [facility]. Time for discharge day management greater than 30 minutes. BEATRICE CALLES MD DR: PREMA/nelda JOB#: [id number] / [id number]
== END 2019-01-12 10:45 | disposition home health service (06) | DRG 885 ==
LOC: GEROPSY 18:32
PROVIDERS: ADMIT Psychiatry & Neurology Psychiatry; ATTEND Psychiatry & Neurology Psychiatry
DX: F33.41 Major depressive disorder, recurrent, in partial remission (principal); F23 Brief psychotic disorder; R45.851 Suicidal ideations; N39.0 Urinary tract infection, site not specified; E11.9 Type 2 diabetes mellitus without complications; E78.5 Hyperlipidemia, unspecified; F09 Unspecified mental disorder due to known physiological condition; F41.9 Anxiety disorder, unspecified; F63.9 Impulse disorder, unspecified; G25.81 Restless legs syndrome; I10 Essential (primary) hypertension; I25.10 Atherosclerotic heart disease of native coronary artery without angina pectoris; M15.9 Polyosteoarthritis, unspecified; Z79.899 Other long term (current) drug therapy; Z85.3 Personal history of malignant neoplasm of breast; Z90.12 Acquired absence of left breast and nipple; Z90.710 Acquired absence of both cervix and uterus; Z91.5 Personal history of self-harm; Z95.1 Presence of aortocoronary bypass graft; Z96.653 Presence of artificial knee joint, bilateral; Z98.84 Bariatric surgery status
CPT/HCPCS: 36415; 70450; 73562; 80053; 80061; 81001; 82306; 82947; 83036; 83540; 83550; 83735; 84436; 84480; 85025; 86592; 87086; 87186; 93005; J1815; Q0162